=== PATIENT | male | born 1970 | race Caucasian/White ===

== ENCOUNTER 2020-02-19 04:43 | Emergency (ER) | payer SELFPAY ==
--- NOTE | ~2020-02-19 | CT_ITS ---
EXAMINATION: CT brain wo con EXAM DATE: 02/19/2020 05:51 INDICATION: Head injury. TECHNIQUE: Spiral CT of the head was performed without contrast. Axial, coronal and sagittal images were reviewed. The dose-length product (DLP) for this examination was 605.33 mGy-cm. The exposure w as tailored according to patient size, and iterative reconstruction (ASIR) was used as additional dos e reduction technique. There is no prior study for comparison. FINDINGS: There is no acute intraparenchymal hemorrhage. No evidence of intraparenchymal brain mass lesion. No evidence of acute infarction. Please note that initial head CT has limited sensitivity f or small or acute infarctions. There is mild periventricular and subcortical hypodensity, nonspecific but probably related to small vessel ischemic disease. There is mild prominence of the sulci and v entricles related to cerebral atrophy. There is intracranial carotid arteriosclerosis. There are n o extra-axial collections. There is no mass effect or midline shift. The orbits are unremarkable. Soft tissue is unremarkable. There is extensive ethmoid and left frontal sinus opacity. Mastoid air cells are well aerated. IMPRESSION: 1. No acute intracranial findings. 2. Chronic age related findings. 3. Extensive ethmoid and left frontal sinus opacity. Reviewed, dictated and finalized at location A.
[2020-02-19 04:47] VITALS: BP 145/103; PULSE 116; RESP 18; TEMP 36.6; O2SAT 100
[2020-02-19] MEDS: TETANUS,DIPHTHERIA,AC PERTUSSIS ADULT (0.5 ML) BOOSTRIX IM (05:01)
--- NOTE | 2020-02-19 05:37 | ED.WOUNDLAC ---
HPI - Wound/Laceration General Chief Complaint: Wound/Laceration Stated Complaint: head lac Time Seen by Provider: 02/19/20 04:49 Source: patient and family Limitations: no limitations History of Present Illness HPI narrative: This patient is a 49 year old male who presents for evaluation of forehead laceration s/p fall. Patient states he accidentally fell down the steps tonight. He states he slipped and he fell down 8 stairs and he struck his head. He denies LOC. He has a mild headache. He denies neck pain or any other injuries. HE has been drinking alcohol tonight. Unsure of last tetanus shot. Onset (ago): minute(s) (30) Review of Systems Review of Systems: All systems reviewed & are unremarkable except as noted in HPI and below Gastrointestinal: Gastrointestinal: Reports nausea Neurologic: Denies syncope and Reports headache(s) PMFSH Past Medical History Medical History (Updated 02/19/20 @ 06:12 by Nicole Mckeon MD) Patient denies medical problems Surgical History Surgical History (Updated 02/19/20 @ 05:38 by Nicole Mckeon MD) History of nasal surgery Social History Social History (Updated 02/19/20 @ 05:38 by Nicole Mckeon MD) Alcohol intake: current Gender identity (if verbalized by the patient): Male Exam Const: General: alert Orientation/consciousness: patient oriented x3 HENMT: Head: normocephalic and other (right forehead with irregular laceration 4 cm into subcutaneous tissue) Eyes: Pupils: Equal, round and reactive pupils present EOM: EOMs intact bilaterally Neck: Neck: normal visual inspection Chest: Chest palpation & inspection: normal inspection of the chest Resp: Effort & Inspection: normal respiratory effort and no retractions Auscultation: clear to auscultation bilaterally Cardio: Rate: regular rate Rhythm: regular rhythm Heart sounds: no murmurs Neuro: General: patient oriented x3 and moves all extremities Extrem: General: normal to inspection Course Reevaluation(s) Reevaluation #1: I discussed with patient that given mechanism, alcohol intoxication with dizziness he should have CT brain before discharge. He is agreeable Date: 02/19/20 Time: 05:41 Vital Signs Vital signs: Vital Signs Temperature 97.8 F 02/19/20 04:47 Pulse Rate 116 H 02/19/20 04:47 Respiratory Rate 18 02/19/20 04:47 Blood Pressure 145/103 H 02/19/20 04:47 Pulse Oximetry 100 02/19/20 04:47 Temperature 97.8 F 02/19/20 04:47 Pulse Rate 116 H 02/19/20 04:47 Respiratory Rate 18 02/19/20 04:47 Blood Pressure 145/103 H 02/19/20 04:47 Pulse Oximetry 100 02/19/20 04:47 Procedures Laceration Laceration 1: Date: 02/19/20 Time: 05:42 Site: face Side (If applicable): right Size (cm): 4 Description: irregular Depth: simple, single layer Local Anesthetic: lidocaine 1% and with epi Amount of anesthesia used (mL): 3 Pre-repair: irrigated ====== Skin Level ====== Skin layer closed with: other (fast absorbing gut) Size (cm): 5-0 Number of sutures: 9 Technique: simple, interrupted ====== Subcutaneous Layer ====== ====== Muscle Layer ====== ====== Tendon Layer ====== MDM - Wound/Laceration Imaging Data Radiologist's impression: CT brain without contrast- No intracranial hemorrhage or skull fracture Discharge Plan Discharge Clinical Impression: Head injury Laceration of forehead Qualifiers: Encounter type: initial encounter Qualified Code(s): S01.81XA - Laceration without foreign body of other part of head, initial encounter Patient Disposition: Home, Self-Care Condition: Stable Instructions: Antibiotic Form, Head Injury (ED), Care For Your Absorbable Stitches (ED) Additional Instructions: Today you were evaluated for a head injury and laceration. Your CT brain showed no injury. I placed absorbable stitches so you will not
== END 2020-02-19 06:27 | disposition home or self-care (01) ==
PROVIDERS: Emergency Provider General Practice
DX: S01.81XA Laceration without foreign body of other part of head, initial encounter (principal); W10.9XXA Fall (on) (from) unspecified stairs and steps, initial encounter; Z23 Encounter for immunization
CPT/HCPCS: 12013; 70450; 90471; 90715; 99284

== ENCOUNTER 2020-08-03 19:08 | Emergency (ER) | payer OTHER, SELFPAY ==
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
[2020-08-03 19:10] VITALS: BP 146/95; PULSE 92; RESP 18; TEMP 35.3; O2SAT 99
[2020-08-03] MEDS: HYDROcodone/acetaminophen (*CRX) 5-325 MG TABLET 1 TAB PO (19:56)
[2020-08-03] MEDS: diazePAM (*CRX) 5 MG TABLET PO (19:57)
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
[2020-08-03 20:43] VITALS: TEMP 36.3
== END 2020-08-03 20:38 | disposition home or self-care (01) ==
PROVIDERS: Emergency Provider Emergency Medicine
DX: S39.012A Strain of muscle, fascia and tendon of lower back, initial encounter (principal); V49.40XA Driver injured in collision with unspecified motor vehicles in traffic accident, initial encounter
CPT/HCPCS: 72100; 99283; A9270

== ENCOUNTER 2025-06-21 13:59 | Outpatient (CLI) | payer OTHER, SELFPAY ==
--- NOTE | ~2025-06-21 | XR_ITS ---
XR lumbar spine 2-3V Indication: nicotine dependence/low back pain Comparison: None Findings: The vertebral heights are intact. No fracture or subluxation. The disc heights are intact. Soft tissues unremarkable Impression: No acute abnormality. Reviewed, dictated and finalized at location P. NCE FORCE SENIOR OFFICER Impression: No acute abnormality.
--- NOTE | ~2025-06-21 | XR_ITS ---
EXAMINATION: XR chest 2V, 06/21/2025 14:20 LEGAL ASSISTANT HISTORY: nicotine dependence/low back pain COMPARISON: No comparisons available. Technique: 2 views obtained. Findings: The lungs are clear, no effusion. No pneumothorax. Heart is normal size. Mediastinal and hilar contours are within normal limits. Bony thorax no acute abnormality. Impression: No acute cardiopulmonary abnormality. Reviewed, dictated and finalized at location P. L ASSISTANT Impression: No acute cardiopulmonary abnormality.
--- OUTSIDE RECORDS SUMMARY | 2025-06-21 15:21 | XMS_ITS | Clinical Summary ---
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 Gender Identity Not on file Sexual Orientation Not on file Plan of Treatment Health Maintenance Due Date Last Done Comments Hepatitis C Virus (HCV) Screening 1969 Hepatitis B Immunization (1 of 3 - 19+ 3-dose series) 1988 Cologuard 2014 Colonoscopy 2014 Colorectal Cancer Screening 2014 Immunochemical Fecal Occult Blood 2014 Pneumococcal Immunization (5 0+ years) (1 of 1 - PCV) 12/26/2019 Zoster Immunization (1 of 2) 12/26/2019 Influenza Immunization (#1) 2025 SARS-COV-2 Immunization (3 - 2024- season) 2025 11/08/2020, 10/11/2020 Respiratory Syncytial Virus (RSV) Immunization (Adult) (1 - 1-dose 75+ series) 2044 DTaP/Tdap/Td Immunization Discontinued 02/19/2020 TdaP Immunization Completed 02/19/2020 Human Papillomavirus (HPV) Immunization Aged Out No longer eligible based on patient's age to complete this topic Meningococcal Immunization (ACWY) Aged Out No longer eligible based on patient's age to complete this topic Rotavirus Immunization Aged Out No lo nger eligible based on patient's age to complete this topic
--- OUTSIDE RECORDS SUMMARY | 2025-06-21 15:21 | XMS_ITS | Clinical Summary ---
Author Organization [facility] Address [address] [place] [id number] Care Team Providers Care Building And Grounds Supervisor Name Role Phone None, Provider MD Primary Care Provider Unavaila ble Allergies No known active allergies Medications No known medications Social History Tobacco Use Types Packs/Day Years Used Date Smoking Tobacco: Some Days Cigarettes Smokeless Tobacco: Never Tobacco Cessation:Ready to Q uit: Not Asked; Counseling Given: Not Answered Alcohol Use Standard Drinks/Week Comments Yes 70 (1 standard drink = 0.6 oz pu re alcohol) social Sex and Gender Information Value Date Recorded Sex Assigned at Not on file 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 Gender Identity Not on file Sexual Orientation Not on file Last Filed Vital Signs Vital Sign Reading Time Taken Comments Blood Pressure 137/99 07/30/2024 3:26 PM BINDERY MACHINE OPERATOR Pulse 92 07/30/2024 3:26 PM BINDERY MACHINE OPERATOR Temperature 36.9 C (98.4 F) 07/30/2024 2:08 PM BINDERY MACHINE OPERATOR Respiratory Rate 18 07/30/2024 3:26 PM BINDERY MACHINE OPERATOR Oxygen Saturation 94% 07/30/2024 3:26 PM BINDERY MACHINE OPERATOR Inhaled Oxygen Concentration - - Weight 81.6 kg (180 lb) 07/30/2024 2:08 PM BINDERY MACHINE OPERATOR Height 172.7 cm (5' 8) 07/30/2024 2:08 PM BINDERY MACHINE OPERATOR Body Mass Index 27.37 07/30/2024 2:08 PM BINDERY MACHINE OPERATOR Plan of Treatment Health Maintenance Due Date Last Done Comments Colorectal Cancer Screening Colonoscopy (10 Years) 1969 Annual Physical 1972 Hepatitis C 12/26/1987 DTaP, Tdap and Td Vaccines ( 1 - Tdap) 1988 Hepatitis B Vaccines (1 of 3 - 19+ 3-dose series) 1988 Pneumococcal Vaccine: 50+ Years (1 of 2 - PCV) 1988 Zoster Vaccines (1 of 2) 12/26/2019 COVID-19 Vaccine (2024-2 6 season) 2025 11/08/2020, 10/11/2020 Influenza Adult (#1) 2025 Hepatitis A Vaccines Aged Out No long er eligible based on patient's age to complete this topic Meningococcal B Vaccine Aged Out No l onger eligible based on patient's age to complete this topic Meningococcal Vaccine Aged Out No shala vicki eligible based on patient's age to complete this topic RSV Immunizations Under 20 Months Aged Out No longer eligible b ased on patient's age to complete this topic Insurance R Care Teams Building And Grounds Supervisor Relationship Specialty Start Date End Date None, Provider, PCP - General UNKNOWN PHYSICIAN SPECIALTY 06/15/24
--- OUTSIDE RECORDS SUMMARY | 2025-06-21 15:21 | XMS_ITS | Clinical Summary ---
Author Organization [facility] Address [address] [place] [address] Care Team Providers Care Apartment Maintenance Worker Name Role Phone None, Physician Primary Care Provider Unavailabl e Source Comments [facility],non-owned Affiliates and Associated Physician Practices is amultiple site organization consisting of ambulatory clinics and hospital sitesin [place], [place], [place] and [place]. This disclosure is being madepursuant to the Care Everywhere program and may not contain all information available regarding this patient. Last updated 18.[employer] [facility] Allergies No known active allergies Medications * Be aware that medications may not be up to date on this document. Alwaysverify current medications with the patient. oxyCODONE, immediate release, (Roxicodone) 5 MG tabletIndicati ons:Fall down stairs, initial encounter Take 1 (one) tablet by mouth every 4 hours as needed 12 tablet 06/16/2024 12:18 PM FRUIT AND VEGETABLE INSPECTOR 4 Active acetaminophen (Tylenol) 500 MG tablet Take 2 (two) tablets by mouth 3 times daily Maximum allowable Acetaminophen amount = 4 Grams (4000 mg) / 24 hours. 60 tablet 06/16/2024 12:18 PM FRUIT AND VEGETABLE INSPECTOR 4 Active lidocaine (Lidoderm) 5 % patch Apply 1 (one) patch to skin every 24 hours Apply patch to most painful area and remove after 12 hours. May reapply a new patch 12 hours later. 5 patch 06/16/2024 12:18 PM FRUIT AND VEGETABLE INSPECTOR 4 Active cyclobenzaprin e (Flexeril) 10 MG tablet Take 1 (one) tablet by mouth 3 times daily as needed for Muscle Spasms 60 tablet 06/16/2024 12:18 PM FRUIT AND VEGETABLE INSPECTOR Active Active Problems Problem Noted Date Diagnosed Date Fall down stairs, initial encounter 06/15/2024 SDH (subdural hematoma) 06/15/2024 Other closed nondisplaced fr acture of third cervical vertebra, sequela 06/15/2024 Social History Tobacco Use Types Packs/Day Years Used Date Smoking Tobacco: Some Days Cigarettes Smokeless Tobacco: Never Tobacco Cessation:Ready to Q uit: Not Asked; Counseling Given: Not Answered Alcohol Use Standard Drinks/Week Comments Yes 0 (1 standard drink = 0.6 oz pur e alcohol) sometimes PHQ-2 Answer Date Recorded Patient Health Questionnaire-2 Score 0 07/08/2024 Sex and Gender Information Value Date Recorded Sex Assigned at Not on file Legal Sex Male 3:09 PM FRUIT AND VEGETABLE INSPECTOR Gender Identity Not on file Sexual Orientation Not on file Last Filed Vital Signs Vital Sign Reading Time Taken Comments Blood Pressure 111/67 06/16/2024 4:35 AM FRUIT AND VEGETABLE INSPECTOR Pulse 105 06/16/2024 6:06 AM FRUIT AND VEGETABLE INSPECTOR Temperature 36.8 C (98.2 F) 06/16/2024 9:12 AM FRUIT AND VEGETABLE INSPECTOR Respiratory Rate 13 06/16/2024 6:06 AM FRUIT AND VEGETABLE INSPECTOR Oxygen Saturation 96% 06/16/2024 6:06 AM FRUIT AND VEGETABLE INSPECTOR Inhaled Oxygen Concentration - - Weight 81.6 kg (180 lb) 07/15/2024 1:39 PM FRUIT AND VEGETABLE INSPECTOR Height 170.2 cm (5' 7) 07/15/2024 1:39 PM FRUIT AND VEGETABLE INSPECTOR Body Mass Index 28.19 07/15/2024 1:39 PM FRUIT AND VEGETABLE INSPECTOR Plan of Treatment Health Maintenance Due Date Last Done Comments COLOGUARD (AGES 45-75) - COL ON CA SCREENING 1969 COLON MONITORING 1969 COLONOSCOPY - COLON CA SCREENING 1969 CT COLONOGRAPHY - COLON CA SCREENING 1969 Colorectal Cancer Screening 1969 FIT - COLON CA SCREENING 1969 FLEX SIG - COLON CA SCREENING 1969 LIPID TESTING 1969 HIV SCREENING 1984 HEPATITIS C SCREENING 12/21/1987 DTAP/TDAP/TD VACCINES (1 - Tdap) 1988 HEPATITIS B VACCINE (1 of 3 - 19+ 3-dose series) 1988 PNEUMOCOCCAL VACCINE 50+ (1 of 2 - PCV) 1988 ZOSTER VACCINE (1 of 2) 12/26/2019 DEPRESSION SCREENING 07/21/2024 07/15/2024 COVID-19 VACCINE (3 - 2024-2 6 season) 2025 11/08/2020, 10/11/2020 INFLUENZA VACCINE (#1) 2025 SCREENING FOR DIABETES 06/16/2027 , 06/15/2024 HIB VACCINE Aged Out No longer eligi ble based on patient's age to complete this topic HPV VACCINE Aged Out No longer eligi ble based on patient's age to complete this topic MENINGOCOCCAL (Group B) VACCINE SHARED DECISION-MAKING Aged Out No longer eligible based on patient's age to complete this topic MENINGOCOCCAL GROUPS A/C/Y/W VACCINE Aged Out No longer eligible b ased on patient's age to complete this topic Procedures Procedure Name Priority Date/Time Associated Diagnosis Comments BASIC METABOLIC PANEL (CALCIUM TOTAL) STAT 06/16/2024 2:49 AM FRUIT AND VEGETABLE INSPECTOR from Last 3 Months or Most Recently Relevant to Health Maintenance Results * (ABNORMAL) BASIC METABOLIC PANEL (CALCIUM TOTAL) (06/16/2024 2:49 AM FRUIT AND VEGETABLE INSPECTOR) BUN 10 7 - 26 mg/dL 06/16/2024 3:28 AM [facility] Creatinine 0.71 0.71 - 1.16 mg/dL 06/16/2024 3:28 AM [facility] Sodium 144 136 - 145 mmol/L 06/16/2024 3:28 AM [facility] Potassium 4.5 3.5 - 4.5 mmol/L 06/16/2024 3:28 AM [facility] Chloride 108(H) 98 - 107 mmol/L 06/16/2024 3:28 AM [facility] CO2 16(L) 22 - 29 mmol/L 06/16/2024 3:28 AM [facility] Glucose 77 70 - 99 mg/dL 06/16/2024 3:28 AM [facility] Calcium 8.7 8.4 - 10.2 mg/dL 06/16/2024 3:28 AM [facility] Anion Gap 20(H) 6 - 16 06/16/2024 3:28 AM [facility] BUN/Creatinine Ratio 14 7 - 23 06/16/2024 3:28 AM [facility] Osmolality Calculated 296(H) 275 - 295 mOsm/kg 06/16/2024 3:28 AM [facility] eGFR by CKD-EPI >90 >=90 mL/min/1.7 3 m2 06/16/2024 3:28 AM [facility] Blood BLOOD SPECIMEN / Unknown Venipuncture / Unknown 06/16/2024 2:49 AM FRUIT AND VEGETABLE INSPECTOR 06/16/2024 2:58 AM [facility] us Daniel Light MD LAB - CHEMISTRY ORDERABLES Final Result [facility] [address] [place] [address], [facility] [phone] from Last 3 Months or Most Recently Relevant to Health Maintenance Advance Directives * Full Code (Latest Code Status on File) Date Activated Date Inactivated Comments 06/15/2024 7:48 PM 06/16/2024 1:05 PM * Full Code Date Activated Date Inactivated Comments 06/15/2024 5:06 PM 06/15/2024 7:48 PM Care Teams Apartment Maintenance Worker Relationship Specialty Start Date End Date None, Physician [address] [place] [address] PCP - General 06/15/24
== END 2025-06-21 14:00 | disposition home or self-care (01) ==
PROVIDERS: PCP Internal Medicine; Visit Provider Internal Medicine
DX: M54.50 Low back pain, unspecified (principal); F17.200 Nicotine dependence, unspecified, uncomplicated
CPT/HCPCS: 71046; 72100

== ENCOUNTER 2025-07-02 15:02 | Emergency (ER) | payer OTHER, SELFPAY ==
--- NOTE | ~2025-07-02 | CT_ITS ---
EXAMINATION: CT lumbar spine wo con COMPARISON: None HISTORY: fall 3 weeks ago TECHNIQUE: Axial images were obtained through the spine without IV contrast. Coronal, sagittal reconstruction images were obtained from the axial views. CT scan performed using dose optimization techniques including the following automated exposure control; adjustment of mA and/or kV; use of iterative reconstruction technique. Automatic exposure control was used to reduce radiation dose. Permanent radiation dose record is archived to PACS. FINDINGS: The vertebral heights are intact with no acute fracture or subluxation.There is no osseous destruction identified. The disc heights are intact with no significant canal or foraminal stenosis There is significant stranding noted within the soft tissues around L3-4 incompletely evaluated. Impression: Significant inflammatory changes noted within the soft tissues anterior to L3-4. There are multiple enlarged lymph nodes in the retroperitoneum, etiology unclear. Findings may relate to a retroperitoneal process possibly neoplasm. These findings may relate to a disc related process such as discitis. Clinical correlation required. Contrast-enhanced MRI suggested if clinically there is concern for discitis and osteomyelitis. Clinically if there is concern for neoplasm CT of the abdomen and pelvis is recommended Reviewed, dictated and finalized at location P. [facility] Impression: Significant inflammatory changes noted within the soft tissues anterior to L3-4 . There are multiple enlarged lymph nodes in the retroperitoneum, etiology unc lear. Findings may relate to a retroperitoneal process possibly neoplasm. These findings may relate to a disc related process such as discitis. Clinical corre lation required. Contrast-enhanced MRI suggested if clinically there is concern for discitis and osteomyelitis. Clinically if there is concern for neoplasm CT of the abdomen and pelvis is recommended
--- NOTE | ~2025-07-02 | CT_ITS ---
[facility] EXAMINATION: CT abdomen pelvis w con COMPARISON: None HISTORY: source for enlarged retroperitoneal lymph nodes TECHNIQUE: Axial images were obtained through the abdomen, pelvis post administration of IV contrast. Oral contrast was also administered. Coronal reconstruction images were obtained from the axial views. CT scan performed using dose optimization techniques including the following automated exposure control; adjustment of mA and/or kV; use of iterative reconstruction technique. Automatic exposure control was used to reduce radiation dose. Permanent radiation dose record is archived to PACS. FINDINGS: CT abdomen: LUNG BASES: The lung bases are clear. The visualized portions of the heart and pericardium are unremarkable. LIVER: Heterogeneity noted of the liver with nodularity of the liver contours suspicious for underlying cirrhotic disease. Left lobe liver probable complex cyst 1.2 x 1.2 cm. The main portal vein is patent. There is no intrahepatic biliary duct dilatation. SPLEEN: Unremarkable. KIDNEYS: Right Kidney: Unremarkable. No calculi. No hydronephrosis. Left Kidney: The left kidney subcentimeter probable renal cysts. ADRENAL GLANDS: Unremarkable. PANCREAS: Unremarkable. GALLBLADDER/BILIARY: Mild distention of the gallbladder with cholelithiasis. STOMACH AND ESOPHAGUS: Stomach is decompressed. BOWEL/MESENTERY: Mild diverticulosis, no colitis or diverticulitis. Appendix normal. Minimal stranding within the mesentery. There are no thickened or dilated loops of small bowel. ADENOPATHY/RETROPERITONEUM: There are moderately enlarged lymph nodes in the peripancreatic space the largest 1.2 x 1.3 cm. There are enlarged lymph nodes within the retroperitoneum the largest 2.2 x 2 cm. There are some enlarged lymph nodes in the mesentery the largest 1.2 x 1.1 cm. AORTA/VASCULATURE: Normal caliber aorta. FREE FLUID OR FREE AIR: None. CT pelvis: SOLID ORGANS/REPRODUCTIVE: Unremarkable. BLADDER: Within normal limits. OSSEOUS STRUCTURES: No acute osseous abnormality.No suspicious lesions. OVERLYING SOFT TISSUES: Unremarkable. IMPRESSION: 1. Lymphadenopathy detailed above. Findings are concerning for neoplasm. PET CT is recommended. 2. Probable cirrhotic disease of the liver. 3. Incidental findings detailed above Reviewed, dictated and finalized at location P. [employer]
[2025-07-02 15:04] VITALS: BP 128/77; PULSE 108; RESP 20; TEMP 36.6; O2SAT 100
[2025-07-02] MEDS: CYCLOBENZAPRINE HCL 10 MG TABLET PO (16:38)
[2025-07-02] MEDS: ACETAMINOPHEN 500 MG TABLET 1000 MG PO (16:38)
[2025-07-02 17:27] VITALS: BP 100/63; PULSE 87; RESP 15; O2SAT 100
[2025-07-02 18:43] LABS: Hematocrit 42.8 % (42.0-52.0); Hemoglobin 14.6 g/dL (14.0-18.0); Immature Granulocyte Percent A 0.6 % (0-0.5); Lymphocytes Absolute Auto 3.86 K/mm3 (0.9-3.2); Mean Corpuscular HGB Conc 34.1 g/dl (32-36); Mean Corpuscular Hemoglobin 32.4 pg (26-34); Mean Corpuscular Volume 95.1 fl (80-100); Nucleated Red Blood Cells Absolute Auto 0.000 K/mm3 (0.0-0.012); Nucleated Red Blood Cells Perc 0.0 % (0.0-0.2); Platelet Count Result 174 k/mm3 (150-375); Red Blood Count 4.50 M/mm3 (4.6-6.20); White Blood Count 13.6 K/mm3 (4.5-10.0)
--- NOTE | 2025-07-02 18:45 | PC.NURSE ---
Pt unable to provide urine sample at this time, declines straight cath.
[2025-07-02 19:03] LABS: Alanine Aminotransferase 38 U/L (6-50); Albumin Level 3.1 g/dL (3.5-5.1); Alkaline Phosphatase 180 U/L (38-126); Anion Gap 6 mmol/L (4-12); Aspartate Amino Transferase 113 U/L (17-59); Bilirubin,Total 1.5 mg/dL (0.2-1.3); Blood Urea Nitrogen 10 mg/dL (9-20); CRP 6.1 mg/dL (<1.0); Calcium 8.9 mg/dL (8.4-10.2); Carbon Dioxide 22 mmol/L (22-30); Chloride 107 mmol/L (98-107); Estimated CRCL calculation 103 ml/min; Estimated Glomerular Filt Rate > 60; Glucose 85 mg/dL (65-110); Potassium 3.7 mmol/L (3.4-5.0); Sodium 135 mmol/L (137-145); Total Protein 8.4 g/dL (6.3-8.2)
--- NOTE | 2025-07-02 19:54 | ED_ITS ---
HPI - Back Pain/Injury General Chief Complaint: Back Pain/Injury Stated Complaint: lower back pain s/p slip and fall Time Seen by Provider: 07/02/25 15:15 History of Present Illness HPI Narrative: 54-year-old male presenting with persistent lower back pain after falling down the stairs 3 weeks ago. Patient states he slipped and fell down 7 or 8 steps. Denies hitting his head, loss of consciousness, nausea/vomiting, dizziness, or any other vision changes. Along with the back pain he he reports having a hard time performing day-to-day tasks which and intermittent back spasms. Denies numbness/tingling, saddle anesthesia, urinary/bowel retention/incontinence. He states he took naproxen today which did not improve his pain. Related Data Home Medications ?Medication ?Instructions ?Recorded ?Confirmed ?Last Taken ?Type acetaminophen 500 mg tablet 500 mg PO Q6H PRN 06/24/24 06/24/24 Unknown History oxycodone 5 mg tablet mg PO 06/24/24 06/24/24 Unkn own History Allergies Allergy/AdvReac Type Severity Reaction Status Date / Time No Known Allergies Allergy Verified 07/02/25 15:03 Review of Systems 2 Review of Systems: All systems reviewed & are unremarkable except as noted in HPI and below PMFSH Surgical History Surgical History History of nasal surgery Family History Family History Mother History of cancer of lymphatic system in adulthood Social History Social History (Updated 06/24/24 @ 14:13 by Tessie Villalobos APRN) Smoking status: Former smoker Tobacco type: cigarettes Alcohol intake: current Drinks per week: 18 Alcohol use details: 6 drinks 3x per week Substance use: former Substance use type: IV drugs Last use: around 2016 Lack of Transportation: No Lack of Food: Never True Current Housing: I Have Housing Concerned About Future Housing: No Difficulty Paying Gas/Electric Bills: YES Difficulty Paying for Meds: YES Currently Unemployed: No Education: High School Diploma/GED Difficulty w/ Childcare or Family Care: No Living arrangements: with family Occupation/Education: occupation Additional occupation/education comments: [employer] Gender identity (if verbalized by the patient): Male Exam 2 Narrative: GENERAL: No acute distress. Appears older than stated age. HEAD: Normocephalic, atraumatic. EYES: PERRLA and EOMI. ENT: Nares clear, no rhinorrhea or epistaxis. Mucous membranes moist. Oropharynx without tonsillar hypertrophy exudate or other lesions. Bilateral TMs pearly chaves non-bulging NECK: Supple. No adenopathy or masses. No carotid bruits or JVD CHEST: Clear to auscultation. No respiratory distress. No wheezes rales or rhonchi HEART: Regular rate and rhythm. No murmur heard. Normal peripheral pulses. ABDOMEN: Soft, nontender, nondistended, normal active bowel sounds. BACK: Diffuse lower back TTP. EXTREMITIES: Normal range of motion. No edema. SKIN: Warm, dry, no rash. NEURO: No focal deficits. Alert and oriented x3. PSYCH: Normal mood and affect Course Vital Signs Vital signs: Vital Signs Temperature 97.8 F 07/02/25 15:04 Pulse Rate 108 H 07/02/25 15:04 Respiratory Rate 20 07/02/25 15:04 Blood Pressure 128/77 07/02/25 15:04 Pulse Oximetry 100 07/02/25 15:04 Oxygen Delivery Room Air 07/02/25 15:04 Temperature 97.8 F 07/02/25 15:04 Pulse Rate 87 07/02/25 17:27 Respiratory Rate 15 07/02/25 17:27 Blood Pressure 100/63 07/02/25 17:27 Pulse Oximetry 100 07/02/25 17:27 Oxygen Delivery Room Air 07/02/25 15:04 [facility] Narrative Medical decision making narrative: 54-year-old male presenting with persistent lower back pain after falling down the stairs 3 weeks ago. Patient states he slipped and fell down 7 or 8 steps. Denies hitting his head, loss of consciousness, nausea/vomiting, dizziness, or any other vision changes. Along with the back pain he he reports having a hard time performing day-to-day tasks which and intermittent back spasms. Denies numbness/tingling, saddle anesthesia, urinary/bowel retention/incontinence. He states he took naproxen today which did not improve his pain. Upon my initial assessment patient appears nontoxic with stable vitals. Patient's back pain is more paraspinal. Administered Tylenol and Flexeril which improved the patient's pain. Lumbar spine imaging demonstrates significant inflammatory changes noted within the soft tissues anterior to L3-4 and multiple enlarged lymph nodes in the retroperitoneum with an unknown etiology. Reading states that these findings may relate to a retroperitoneal process possibly neoplasm or to a disc related process such as discitis. Advises clinical correlation and recommends contrast-enhanced MRI if clinically there is concern for discitis and osteomyelitis. Clinically if there is concern for neoplasm CT of the abdomen and pelvis is recommended. Obtained labs which demonstrated leukocytosis of 13.6, elevations in all LFTs except for ALT, CRP of 6.1, and a lactic of 2.3. CT abdomen pelvis demonstrates lymphadenopathy with findings concerning for neoplasm. PET CT is recommended. And probable cirrhotic disease of the liver. Other incidental findings noted and discussed with the patient. Patient is currently hemodynamically stable and has no acute distress. Given stability, no emergent intervention is indicated. Risks and benefits of further workup discussed and patient instructed to follow- up with primary care for additional evaluation and workup. Patient verbalized understanding and questions were addressed. Patient agrees with discussion and after shared medical decision making agrees with plan of care. All questions were answered to the patient's satisfaction. The patient is appropriate for outpatient treatment and follow-up. Given reasons to return. Differential Diagnosis Differential Diagnosis: Differential diagnostic considerations for back pain include herniated disc, sciatica, abscess, strain/sprain, discitis, myelitis, fracture, hematoma, cauda equina, osteomyelitis, metastatic and/or primary malignancy, renal colic, pyelonephritis, AAA. Lab Data MDM Lab Attestation statement: I personally reviewed the patient's lab results. 07/02/25 18:36 07/02/25 18:36 Labs: Lab Results 07/02/25 07/02/25 07/02/25 Range/Units 18:36 18:36 19:58 WBC 13.6 H (4.5-10.0) K/mm3 RBC 4.50 L (4.6-6.20) M/mm3 Hgb 14.6 (14.0-18.0) g/dL Hct 42.8 (42.0-52.0) % MCV 95.1 (80-100) fl MCH 32.4 (26-34) pg MCHC 34.1 (32-36) g/dl RDW 14.0 (11.5-14.5) % Plt Count 174 (150-375) k/mm3 MPV 8.7 (7.4-10.4) fl Immature Gran % (Auto) 0.6 H (0-0.5) % Neut % (Auto) 62.9 (45.5-73.1) % Lymph % (Auto) 28.4 (18.3-44.2) % Brantley % (Auto) 6.8 (2.6-8.5) % Eos % (Auto) 0.9 (0-4.4) % Baso % (Auto) 0.4 (0.2-1.2) % Lymph # (Auto) 3.86 H (0.9-3.2) K/mm3 Brantley # (Auto) 0.9 H (0.1-0.6) K/mm3 Eos # (Auto) 0.1 (0-0.3) K/mm3 Baso # (Auto) 0.1 (0.0-0.1) K/mm3 Abs Immat Gran (auto) 0.08 H (0.00-0.031) K/mm3 Absolute Neuts (auto) 8.5 H (1.3-6.7) K/mm3 Absolute Nucleated RBC 0.000 (0.0-0.012) K/mm3 Nucleated RBC % 0.0 (0.0-0.2) % Sodium 135 L (137-145) mmol/L Potassium 3.7 (3.4-5.0) mmol/L Chloride 107 (98-107) mmol/L Carbon Dioxide 22 (22-30) mmol/L Anion Gap 6 (4-12) mmol/L BUN 10 (9-20) mg/dL Creatinine 0.65 L (0.7-1.3) mg/dL Estim Creat Clear Calc 103 ml/min Estimated GFR > 60 (59 - ) Glucose 85 (65-110) mg/dL Lactic Acid 2.3 H (0.7-2.0) mmol/L Calcium 8.9 (8.4-10.2) mg/dL Total Bilirubin 1.5 H (0.2-1.3) mg/dL AST 113 H (17-59) U/L ALT 38 (6-50) U/L Alkaline Phosphatase 180 H (38-126) U/L C-Reactive Protein Cancelled 6.1 H Total Protein 8.4 H (6.3-8.2) g/dL Albumin 3.1 L (3.5-5.1) g/dL Urine Color Dark yellow (Yellow) Urine Appearance Clear (Clear) Urine pH 5.5 (5.0-9.0) Ur Specific Virgin 1.040 H (1.001-1.035) Urine Protein Trace (Negative) mg/dL Urine Glucose (UA) Negative (Negative) mg/dL Urine Ketones Negative (Negative) mg/dL Ur Blood (Man) Trace (Negative) Urine Nitrate Negative (Negative) Urine Bilirubin 1+ H (Negative) Urine Urobilinogen 1.0 (<2.0) mg/dL Leukocyte Esterase Rfl Trace H (Negative) GABRIEL/UL Urine RBC 3-5 H (0-2) /hpf Urine WBC 0-5 (0-3) /hpf Ur Squamous Epith Cells None seen (Few) /hpf Urine Bacteria None seen /hpf Urine Casts 3-5 Imaging Data Attestation: I personally reviewed and interpreted this imaging study as follows: Radiologist's impression: ITS Impressions Lumbar Spine CT 07/02/25 17:37 Impression: Significant inflammatory changes noted within the soft tissues anterior to L3-4. There are multiple enlarged lymph nodes in the retroperitoneum, etiology unclear. Findings may relate to a retroperitoneal process possibly neoplasm. These findings may relate to a disc related process such as discitis. Clinical correlation required. Contrast-enhanced MRI suggested if clinically there is concern for discitis and osteomyelitis. Clinically if there is concern for neoplasm CT of the abdomen and pelvis is recommended Abdomen/Pelvis CT 07/02/25 19:49 IMPRESSION: 1. Lymphadenopathy detailed above. Findings are concerning for neoplasm. PET CT is recommended. 2. Probable cirrhotic disease of the liver. 3. Incidental findings detailed above Discharge Plan Discharge Clinical Impression: Back pain, Back muscle spasm Patient Disposition: Home Condition: Stable Instructions: Back Pain (ED) Additional Instructions: Return to the ER if you experience weakness, numbness, bowel/bladder incontinence or any other symptoms that are concerning to you. Rest, use ice/heat, take anti-inflammatories (Aleve, Ibuprofen, Naproxen, etc) or Tylenol as needed for pain as well as muscle relaxer as needed for pain. Follow up with your primary care doctor as soon as possible for further workup and imaging as discussed. If you need to access the records from this visit, call [facility] Medical Records. Patient Language: French Prescriptions: New cyclobenzaprine 10 mg tablet 10 mg PO TID PRN (Reason: muscle spasm) Qty: 20 0RF No Action oxycodone 5 mg tablet PO acetaminophen 500 mg tablet 500 mg PO Q6H PRN cyclobenzaprine 10 mg tablet 10 mg PO TID PRN (Reason: muscle spasm) Qty: 7 0RF lidocaine 5 % adhesive patch,medicated 1 patch topical DAILY Qty: 1 0RF Rx Instructions: leave on most painful area for up to 12 hrs, dispense one box Follow-up/Referrals: Marylou,Leobardo Melissa MD [Primary Care Provider] Stand Alone Forms: Work/School Release IP
[2025-07-02 20:06] LABS: Add Urine Microscopic? YES; Appearance Urine Clear (Clear); Glucose Urine UA Negative (Negative); Leukocyte Esterase Ur Trace LEU/UL (Negative); Nitrate Urine Negative (Negative); Specific Grav Ur 1.040 (1.001-1.035)
== END 2025-07-02 20:59 | disposition home or self-care (01) ==
PROVIDERS: PCP Internal Medicine
DX: M54.50 Low back pain, unspecified (principal); M62.830 Muscle spasm of back; Z87.891 Personal history of nicotine dependence; W10.9XXA Fall (on) (from) unspecified stairs and steps, initial encounter
CPT/HCPCS: 36415; 72131; 74177; 80053; 81001; 83605; 85025; 86140; 99284; A9270; Q9967

== ENCOUNTER 2025-07-06 13:35 | Inpatient (IN) | payer OTHER, SELFPAY ==
[2025-07-06] VITALS (22 sets, daily range): BP systolic 78–114; BP diastolic 48–75; PULSE 70–109; RESP 14–24; TEMP 36.3–36.6; O2SAT 94–100; BMI 25.7
--- NOTE | ~2025-07-06 | US_ITS ---
US abdomen limited Indication: elevated liver enzymes Comparison: None Technique: Styles-scale and color Doppler images were obtained. Findings: LIVER: The liver contours are nodular. Moderate increased echogenicity of the liver. Right lobe liver complex cystic lesion 1.3 x 1.3 cm. . GALLBLADDER/BILIARY: Cholelithiasis. No pericholecystic fluid or wall thickening. CBD 6.2 mm. Quincy sign negative. PANCREAS: Pancreas limited by bowel gas. Right Kidney: Right kidney was not imaged Impression: 1. Cirrhotic disease of the liver. Complex probable liver cyst. Contrast- enhanced MRI suggested. 2. Cholelithiasis. Reviewed, dictated and finalized at location [facility] Impression: 1. Cirrhotic disease of the liver. Complex probable liver cyst. Contrast-enhanc ed MRI suggested. 2. Cholelithiasis.
--- NOTE | ~2025-07-06 | MR_ITS ---
EXAM/PROCEDURE: MR lumbar spine wo/w con HISTORY: Infectious process COMPARISON: None available. TECHNIQUE: Lumbar spine MRI with and without contrast FINDINGS: In the epidural space anteriorly, at the L4-5 level, a 1.4 x 1.4 x 0.3 cm peripherally enhancing fluid accumulation is seen on axial image 24 postcontrast series 8, and sagittal image 8 series 7 on the postcontrast series, and sagittal image 8 series 3, the T2 fat saturation sequence. There may also be slight extension caudally and cephalad of soft tissue inflammatory/infectious changes measuring up to 3.5 cm as seen on image 8 series 3 with abnormal enhancement above and below the disc space, however the fluid accumulation itself is much smaller. Epidural changes at L4-5 resulting in mild spinal canal stenosis. Moderately severe bilateral neural foraminal narrowing which appears to be primarily associated with degenerative disc and facet changes. Borderline widening of the L4-5 disc space, however no internal fluid accumulation within the disc or abnormal enhancement. Slight erosive appearing changes developing along the anterior superior endplate of L5 as seen on images 3 through 8 of series 7. There is moderately extensive T2 weighted hyperintense and enhancing paraspinal soft tissue changes anterior to the L4-5 space as seen on images 23 through 26 of series 8. No other acute or aggressive bony or soft tissue process seen. Degenerative changes throughout the lumbar spine. The conus tapers normally at the level of L1. Other level specific degenerative changes as follows: T12-L1: Mild degenerative change L1-2: Mild degenerative change L2-3: Mild degenerative change L3-4: Moderate facet hypertrophy with thickening of ligamentum flavum and mild posterior spondylosis results in borderline stenosis in the lateral recesses and mild to moderate bilateral neural foraminal narrowing. No spinal canal stenosis or discrete disc protrusion. L4-5: As above. L5-S1: Mild to moderate degenerative disc and facet changes but no spinal canal stenosis or discrete disc protrusion. Mild to moderate bilateral neural foraminal narrowing. IMPRESSION: 1. Suspect small epidural abscess at the level L4-5 with moderately moderately extensive anterior paraspinal inflammatory/infectious soft tissue changes which may represent phlegmon but no other abscess or fluid collection identified. The disc itself at L4-5 does not appear significantly inflamed/abnormal in signal or enhancement, however there are erosive appearing changes along the left lateral margin of the superior endplate of L5 which is concerning for developing osteomyelitis of L5. 2. Other level specific degenerative changes as above. Reviewed, dictated and finalized at location A. [employer]CH[employer]ICIAN IMPRESSION: 1. Suspect small epidural abscess at the level L4-5 with moderately moderately extensive anterior paraspinal inflammatory/infectious soft tissue changes which may represent phlegmon but no other abscess or fluid collection identified. Th e disc itself at L4-5 does not appear significantly inflamed/abnormal in signal or enhancement, however there are erosive appearing changes along the left lat eral margin of the superior endplate of L5 which is concerning for developing o steomyelitis of L5. 2. Other level specific degenerative changes as above.
--- NOTE | 2025-07-06 14:26 | ED_ITS ---
HPI - Skin/Abscess/Foreign Bdy General Chief complaint: Skin/Abscess/Foreign Body <Corina Saleh APRN - Last Filed: 07/06/25 14:28> Stated complaint: RASH AFTER CT SCAN <Corina Saleh APRN - Last Filed: 07/06/25 14:28> Time Seen by Provider: 07/06/25 14:26 <Corina Saleh APRN - Last Filed: 07/06/25 14:28> Focused HPI: Patient is a 54-year-old male who presents to the ER with a rash to his bilateral upper extremities and the tops of his feet. He reports he was seen in this ER this past weekend for back pain. Patient reports he had a CT scan and he is wondering if the contrast caused these symptoms. He denies pain to the site but endorses itching. Patient denies any recent illness. He endorses a history of a brain bleed, cervical strain, and rib fractures following a fall down a flight of stairs. Patient endorses ongoing back pain since he was evaluated in the ER this past weekend. GENERAL: Well-appearing, well-nourished, and in no acute distress. HEAD: Normocephalic, atraumatic. CHEST: Clear to auscultation. ?No respiratory distress. HEART: Regular rate and rhythm.? NEURO: ?Alert and oriented x3. Patient screened in triage and initial orders placed.? ?Additional care and disposition to be based upon?diagnostic testing and treatment. <Corina Saleh APRN - Last Filed: 07/06/25 14:28> History of Present Illness HPI narrative: Agree with HPI. <Juventino Drew DO - Last Filed: 07/06/25 21:58> Related Data Allergies/Adverse reactions: Allergies Allergy/AdvReac Type Severity Reaction Status Date / Time No Known Allergies Allergy Verified 07/06/25 20:41 <Corina Saleh APRN - Last Filed: 07/06/25 14:28> Review of Systems 2 Review of Systems: All systems reviewed & are unremarkable except as noted in HPI and below <Juventino Drew DO - Last Filed: 07/06/25 21:58> PMFSH Past Medical History Medical History: Medical History Vitamin D deficiency Muscle spasm Fracture of cervical vertebra without spinal cord injury Brain bleed <Corina Saleh APRN - Last Filed: 07/06/25 14:28> Surgical History Surgical History: Surgical History History of tonsillectomy and adenoidectomy History of nasal surgery nasal polypectomy <Corina Saleh BUILDING INSPECTION ENGINEER - Last Filed: 07/06/25 14:28> Family History Family History: Family History Mother History of cancer of lymphatic system in adulthood Sibling Malignant neoplasm of prostate <Corina Saleh APRN - Last Filed: 07/06/25 14:28> Social History Social History: Social History Social History: He is single and lives with mother . He has no children . 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 . 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 He is a starr IV drug user. He continues to drink 6 drinks 3 times a week. Code status full code Smoking status: Former smoker Tobacco type: cigarettes Alcohol intake: current Drinks per week: 18 Alcohol use details: 6 drinks 3x per week Substance use: former Substance use type: IV drugs Last use: around 2017 Lack of Transportation: No Lack of Food: Never True Current Housing: I Have Housing Concerned About Future Housing: No Difficulty Paying Gas/Electric Bills: YES Difficulty Paying for Meds: YES Currently Unemployed: No Education: High School Diploma/GED Difficulty w/ Childcare or Family Care: No Living arrangements: with family Occupation/Education: occupation 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[employer] Gender identity (if verbalized by the patient): Male <Corina Saleh APRN - Last Filed: 07/06/25 14:28> Exam 2 Narrative: APPEARANCE: No acute distress, nontoxic, resting in bed EYES: EOMI HEENT: Normocephalic, atraumatic, thrush noted there is non scrapable RESPIRATORY: No respiratory distress Clear to auscultation bilaterally with no rhonchi wheezing or rales. CARDIOVASCULAR: Regular rate and rhythm without murmurs rubs or gallops. ABDOMINAL: Soft, nontender, nondistended, no rebound or guarding MUSCULOSKELETAl: Moves all extremities. No clubbing, cyanosis or edema. NEURO: Awake and alert. Following commands, speech normal, no focal deficits SKIN:: Pustular lesions to the extensor surfaces of the bilateral upper extremities with petechiae up to the shoulders and to the bilateral lower extremities PSYCHIATRIC: Normal affect/mood, <Juventino Drew DO - Last Filed: 07/06/25 21:58> Course Vital Signs Vital signs: Vital Signs Temperature 97.8 F 07/06/25 13:37 Pulse Rate 70 07/06/25 13:37 Respiratory Rate 16 07/06/25 13:37 Blood Pressure 87/60 L 07/06/25 13:37 Pulse Oximetry 100 07/06/25 13:37 Oxygen Delivery Room Air 07/06/25 13:37 Temperature 97.4 F L 07/06/25 20:46 Pulse Rate 91 07/06/25 20:46 Respiratory Rate 20 07/06/25 20:46 Blood Pressure 103/63 07/06/25 20:46 Pulse Oximetry 95 07/06/25 20:46 Oxygen Delivery Room Air 07/06/25 13:37 <Corina Saleh, BUILDING INSPECTION ENGINEER - Last Filed: 07/06/25 14:28> Vital Signs Temperature 97.8 F 07/06/25 13:37 Pulse Rate 70 07/06/25 13:37 Respiratory Rate 16 07/06/25 13:37 Blood Pressure 87/60 L 07/06/25 13:37 Pulse Oximetry 100 07/06/25 13:37 Oxygen Delivery Room Air 07/06/25 13:37 Temperature 97.4 F L 07/06/25 20:46 Pulse Rate 91 07/06/25 20:46 Respiratory Rate 20 07/06/25 20:46 Blood Pressure 103/63 07/06/25 20:46 Pulse Oximetry 95 07/06/25 20:46 Oxygen Delivery Room Air 07/06/25 13:37 <Juventino Drew DO - Last Filed: 07/06/25 21:58> MDM MDM Narrative Medical decision making narrative: 54-year-old male Presenting for rash to his bilateral arms. On initial evaluation patient was in no acute distress afebrile. Initial blood pressures in the 80s/60s. Differentials include but are not limited to: Allergic reaction, cellulitis, tick-borne illness, HIV, cancer Notable exam findings: Scattered lesions as above. Heart and lungs clear. I personally reviewed the patient's lab result. Notable lab findings: Leukocytosis at 13.3. Lactic acidosis at 3.0. T bili elevated at 3. CRP elevated at 6.9. UA consistent with a UTI. I personally reviewed the patient's EKGs: Normal sinus rhythm, normal axis, normal intervals, no acute ST or T-wave changes CTs from last visit showed possible new neoplasm. Unclear was the source of his rash this time, this will require further evaluation. Obtained HIV testing. He does have sepsis due to a UTI at this time. He was given vanc and Rocephin to cover for this and any other possible dermatologic infections. Case was discussed with hospitalist who will admit the patient, does recommend adding on hepatitis screening as well. <Juventino Drew DO - Last Filed: 07/06/25 21:58> Differential Diagnosis Differential Diagnosis: Allergic reaction, cellulitis, tick-borne illness, HIV, cancer <Juventino Derw DO - Last Filed: 07/06/25 21:58> Lab Data Result diagrams: 07/06/25 15:03 07/06/25 15:03 <Corina Saleh APRN - Last Filed: 07/06/25 14:28> Labs: Lab Results 07/06/25 07/06/25 07/06/25 Range/Units 15:03 16:13 17:17 WBC 13.3 H (4.5-10.0) K/mm3 RBC 4.81 (4.6-6.20) M/mm3 Hgb 15.5 (14.0-18.0) g/dL Hct 46.0 (42.0-52.0) % MCV 95.6 (80-100) fl MCH 32.2 (26-34) pg MCHC 33.7 (32-36) g/dl RDW 14.3 (11.5-14.5) % Plt Count 189 (150-375) k/mm3 MPV 8.8 (7.4-10.4) fl Immature Gran % (Auto) 0.5 (0-0.5) % Neut % (Auto) 77.1 H (45.5-73.1) % Lymph % (Auto) 17.7 L (18.3-44.2) % Cross % (Auto) 3.7 (2.6-8.5) % Eos % (Auto) 0.6 (0-4.4) % Baso % (Auto) 0.4 (0.2-1.2) % Lymph # (Auto) 2.35 (0.9-3.2) K/mm3 Cross # (Auto) 0.5 (0.1-0.6) K/mm3 Eos # (Auto) 0.1 (0-0.3) K/mm3 Baso # (Auto) 0.1 (0.0-0.1) K/mm3 Abs Immat Gran (auto) 0.06 H (0.00-0.031) K/mm3 Absolute Neuts (auto) 10.3 H (1.3-6.7) K/mm3 Absolute Nucleated RBC 0.000 (0.0-0.012) K/mm3 Nucleated RBC % 0.0 (0.0-0.2) % PT 16.6 H (11.1-14.7) Seconds INR 1.3 APTT 34.6 (22.3-36.8) Seconds Sodium 135 L (137-145) mmol/L Potassium 3.8 (3.4-5.0) mmol/L Chloride 105 (98-107) mmol/L Carbon Dioxide 20 L (22-30) mmol/L Anion Gap 10 (4-12) mmol/L BUN 11 (9-20) mg/dL Creatinine 0.85 (0.7-1.3) mg/dL Estim Creat Clear Calc 91 ml/min Estimated GFR > 60 (59 - ) Glucose 93 (65-110) mg/dL Lactic Acid 3.0 H 2.4 H (0.7-2.0) mmol/L Calcium 9.0 (8.4-10.2) mg/dL Total Bilirubin 3.0 H (0.2-1.3) mg/dL AST 86 H (17-59) U/L ALT 33 (6-50) U/L Alkaline Phosphatase 182 H (38-126) U/L Total Creatine Kinase 22 L (55-170) U/L C-Reactive Protein 6.9 H (<1.0) mg/dL Total Protein 8.9 H (6.3-8.2) g/dL Albumin 3.2 L (3.5-5.1) g/dL Urine Color Dark amanda (Yellow) Urine Appearance Cloudy H (Clear) Urine pH 5.5 (5.0-9.0) Ur Specific [place] 1.020 (1.001-1.035) Urine Protein 1+ H (Negative) mg/dL Urine Glucose (UA) Negative (Negative) mg/dL Urine Ketones Negative (Negative) mg/dL Ur Blood (Man) 3+ H (Negative) Urine Nitrate Positive H (Negative) Urine Bilirubin 1+ H (Negative) Urine Urobilinogen 1.0 (<2.0) mg/dL Add Ur Microanalysis Reviewed Leukocyte Esterase Rfl 2+ H (Negative) GABRIEL/UL Urine RBC 51-100 H (0-2) /hpf Urine WBC 6-10 H (0-3) /hpf Ur Squamous Epith Cells None seen (Few) /hpf Urine Bacteria None seen /hpf Urine Casts 3-5 Urine Mucus Present /lpf HIV-1 RNA Qualitative Pending HIV-2 RNA Qualitative Pending <Corina Saleh, BUILDING INSPECTION ENGINEER - Last Filed: 07/06/25 14:28> Lab Results 07/06/25 07/06/25 07/06/25 Range/Units 15:03 16:13 17:17 WBC 13.3 H (4.5-10.0) K/mm3 RBC 4.81 (4.6-6.20) M/mm3 Hgb 15.5 (14.0-18.0) g/dL Hct 46.0 (42.0-52.0) % MCV 95.6 (80-100) fl MCH 32.2 (26-34) pg MCHC 33.7 (32-36) g/dl RDW 14.3 (11.5-14.5) % Plt Count 189 (150-375) k/mm3 MPV 8.8 (7.4-10.4) fl Immature Gran % (Auto) 0.5 (0-0.5) % Neut % (Auto) 77.1 H (45.5-73.1) % Lymph % (Auto) 17.7 L (18.3-44.2) % Cross % (Auto) 3.7 (2.6-8.5) % Eos % (Auto) 0.6 (0-4.4) % Baso % (Auto) 0.4 (0.2-1.2) % Lymph # (Auto) 2.35 (0.9-3.2) K/mm3 Cross # (Auto) 0.5 (0.1-0.6) K/mm3 Eos # (Auto) 0.1 (0-0.3) K/mm3 Baso # (Auto) 0.1 (0.0-0.1) K/mm3 Abs Immat Gran (auto) 0.06 H (0.00-0.031) K/mm3 Absolute Neuts (auto) 10.3 H (1.3-6.7) K/mm3 Absolute Nucleated RBC 0.000 (0.0-0.012) K/mm3 Nucleated RBC % 0.0 (0.0-0.2) % PT 16.6 H (11.1-14.7) Seconds INR 1.3 APTT 34.6 (22.3-36.8) Seconds Sodium 135 L (137-145) mmol/L Potassium 3.8 (3.4-5.0) mmol/L Chloride 105 (98-107) mmol/L Carbon Dioxide 20 L (22-30) mmol/L Anion Gap 10 (4-12) mmol/L BUN 11 (9-20) mg/dL Creatinine 0.85 (0.7-1.3) mg/dL Estim Creat Clear Calc 91 ml/min Estimated GFR > 60 (59 - ) Glucose 93 (65-110) mg/dL Lactic Acid 3.0 H 2.4 H (0.7-2.0) mmol/L Calcium 9.0 (8.4-10.2) mg/dL Total Bilirubin 3.0 H (0.2-1.3) mg/dL AST 86 H (17-59) U/L ALT 33 (6-50) U/L Alkaline Phosphatase 182 H (38-126) U/L Total Creatine Kinase 22 L (55-170) U/L C-Reactive Protein 6.9 H (<1.0) mg/dL Total Protein 8.9 H (6.3-8.2) g/dL Albumin 3.2 L (3.5-5.1) g/dL Urine Color Dark amanda (Yellow) Urine Appearance Cloudy H (Clear) Urine pH 5.5 (5.0-9.0) Ur Specific [place] 1.020 (1.001-1.035) Urine Protein 1+ H (Negative) mg/dL Urine Glucose (UA) Negative (Negative) mg/dL Urine Ketones Negative (Negative) mg/dL Ur Blood (Man) 3+ H (Negative) Urine Nitrate Positive H (Negative) Urine Bilirubin 1+ H (Negative) Urine Urobilinogen 1.0 (<2.0) mg/dL Add Ur Microanalysis Reviewed Leukocyte Esterase Rfl 2+ H (Negative) GABRIEL/UL Urine RBC 51-100 H (0-2) /hpf Urine WBC 6-10 H (0-3) /hpf Ur Squamous Epith Cells None seen (Few) /hpf Urine Bacteria None seen /hpf Urine Casts 3-5 Urine Mucus Present /lpf HIV-1 RNA Qualitative Pending HIV-2 RNA Qualitative Pending <Juventino Drew DO - Last Filed: 07/06/25 21:58> Discharge Plan Discharge Clinical Impression: Acute UTI, Sepsis, Pustular rash, Petechiae <Corina Saleh APRN - Last Filed: 07/06/25 14:28> Patient Disposition: Still a Patient <Corina Saleh APRN - Last Filed: 07/06/25 14:28> Condition: Stable <Corina Saleh APRN - Last Filed: 07/06/25 14:28>
--- NOTE | 2025-07-06 14:46 | ECG_ITS ---
Test Date: 2025-07-06 14:47:56 Measurements Intervals [place] Rate: 93 P: 46 [place]: 116 QRS: 69 QRSD: 91 T: 12 QT: 373 QTc: 464 Interpretive Statements SINUS RHYTHM NORMAL ECG No previous ECG available for comparison Electronically Signed On 07-06-2025 15:14:44 DENTAL PROFESSIONAL by Mark Messer D.O.
[2025-07-06 15:11] LABS: Hematocrit 46.0 % (42.0-52.0); Hemoglobin 15.5 g/dL (14.0-18.0); Immature Granulocyte Percent A 0.5 % (0-0.5); Lymphocytes Absolute Auto 2.35 K/mm3 (0.9-3.2); Mean Corpuscular HGB Conc 33.7 g/dl (32-36); Mean Corpuscular Hemoglobin 32.2 pg (26-34); Mean Corpuscular Volume 95.6 fl (80-100); Nucleated Red Blood Cells Absolute Auto 0.000 K/mm3 (0.0-0.012); Nucleated Red Blood Cells Perc 0.0 % (0.0-0.2); Platelet Count Result 189 k/mm3 (150-375); Red Blood Count 4.81 M/mm3 (4.6-6.20); White Blood Count 13.3 K/mm3 (4.5-10.0)
[2025-07-06 15:24] LABS: INR 1.3; Prothrombin Time 16.6 Seconds (11.1-14.7)
[2025-07-06 15:25] LABS: Partial Thromboplastin Time 34.6 Seconds (22.3-36.8)
[2025-07-06 15:26] LABS: Alanine Aminotransferase 33 U/L (6-50); Albumin Level 3.2 g/dL (3.5-5.1); Alkaline Phosphatase 182 U/L (38-126); Anion Gap 10 mmol/L (4-12); Aspartate Amino Transferase 86 U/L (17-59); Bilirubin,Total 3.0 mg/dL (0.2-1.3); Blood Urea Nitrogen 11 mg/dL (9-20); CRP 6.9 mg/dL (<1.0); Calcium 9.0 mg/dL (8.4-10.2); Carbon Dioxide 20 mmol/L (22-30); Chloride 105 mmol/L (98-107); Estimated CRCL calculation 91 ml/min; Estimated Glomerular Filt Rate > 60; Glucose 93 mg/dL (65-110); Potassium 3.8 mmol/L (3.4-5.0); Sodium 135 mmol/L (137-145); Total Protein 8.9 g/dL (6.3-8.2)
[2025-07-06] MEDS: SODIUM CHLORIDE 0.9% IV 1,000 ML 999 ML IV CONT ×3 (16:03→17:38)
--- OUTSIDE RECORDS SUMMARY | 2025-07-06 16:08 | XMS_ITS | Clinical Summary ---
Author Organization [facility] Address [address] [place] [address] Care Team Providers Care Farmer Diversified Crops Name Role Phone None, Physician Primary Care Provider Unavailabl e Source Comments [facility],non-owned Affiliates and Associated Physician Practices is amultiple site organization consisting of ambulatory clinics and hospital sitesin [place], [place], [place] and [place]. This disclosure is being madepursuant to the Care Everywhere program and may not contain all information available regarding this patient. Last updated 18.[facility] Allergies No known active allergies Medications * Be aware that medications may not be up to date on this document. Alwaysverify current medications with the patient. oxyCODONE, immediate release, (Roxicodone) 5 MG tabletIndicati ons:Fall down stairs, initial encounter Take 1 (one) tablet by mouth every 4 hours as needed 12 tablet 06/16/2024 12:18 PM CLOTH CALENDER 4 Active acetaminophen (Tylenol) 500 MG tablet Take 2 (two) tablets by mouth 3 times daily Maximum allowable Acetaminophen amount = 4 Grams (4000 mg) / 24 hours. 60 tablet 06/16/2024 12:18 PM CLOTH CALENDER 4 Active lidocaine (Lidoderm) 5 % patch Apply 1 (one) patch to skin every 24 hours Apply patch to most painful area and remove after 12 hours. May reapply a new patch 12 hours later. 5 patch 06/16/2024 12:18 PM CLOTH CALENDER 4 Active cyclobenzaprin e (Flexeril) 10 MG tablet Take 1 (one) tablet by mouth 3 times daily as needed for Muscle Spasms 60 tablet 06/16/2024 12:18 PM CLOTH CALENDER Active Active Problems Problem Noted Date Diagnosed [...] on file Legal Sex Male 3:09 PM CLOTH CALENDER Gender Identity Not on file Sexual Orientation Not on file Last Filed Vital Signs Vital Sign Reading Time Taken Comments Blood Pressure 111/67 06/16/2024 4:35 AM CLOTH CALENDER Pulse 105 06/16/2024 6:06 AM CLOTH CALENDER Temperature 36.8 C (98.2 F) 06/16/2024 9:12 AM CLOTH CALENDER Respiratory Rate 13 06/16/2024 6:06 AM CLOTH CALENDER Oxygen Saturation 96% 06/16/2024 6:06 AM CLOTH CALENDER Inhaled Oxygen Concentration - - Weight 81.6 kg (180 lb) 07/15/2024 1:39 PM CLOTH CALENDER Height 170.2 cm (5' 7) 07/15/2024 1:39 PM CLOTH CALENDER Body Mass Index 28.19 07/15/2024 1:39 PM CLOTH CALENDER Plan of Treatment Health Maintenance Due Date [...] PANEL (CALCIUM TOTAL) STAT 06/16/2024 2:49 AM CLOTH CALENDER from Last 3 Months or Most Recently Relevant to Health Maintenance Results * (ABNORMAL) BASIC METABOLIC PANEL (CALCIUM TOTAL) (06/16/2024 2:49 AM CLOTH CALENDER) BUN 10 7 - 26 mg/dL 06/16/2024 3:28 AM [facility] Creatinine 0.71 0.71 - 1.16 mg/dL 06/16/2024 3:28 AM [facility] Sodium 144 136 - 145 mmol/L 06/16/2024 3:28 AM [facility] Potassium 4.5 3.5 - 4.5 mmol/L 06/16/2024 3:28 AM [facility] Chloride 108(H) 98 - 107 mmol/L 06/16/2024 3:28 AM [facility] CO2 16(L) 22 - 29 mmol/L 06/16/2024 3:28 AM [facility] Glucose 77 70 - 99 mg/dL 06/16/2024 3:28 AM [facility] Calcium 8.7 8.4 - 10.2 mg/dL 06/16/2024 3:28 AM [facility] Anion Gap 20(H) 6 - 16 06/16/2024 3:28 AM [facility] BUN/Creatinine Ratio 14 7 - 23 06/16/2024 3:28 AM [facility] Osmolality Calculated 296(H) 275 - 295 mOsm/kg 06/16/2024 3:28 AM [facility] eGFR by CKD-EPI >90 >=90 mL/min/1.7 3 m2 06/16/2024 3:28 AM [facility] Blood BLOOD SPECIMEN / Unknown Venipuncture / Unknown 06/16/2024 2:49 AM CLOTH CALENDER 06/16/2024 2:58 AM [facility] us Daniel Light MD LAB - CHEMISTRY ORDERABLES Final Result [facility] [address] [place] [address], [facility] [phone] from Last 3 Months or Most Recently Relevant to Health Maintenance Advance Directives * Full Code (Latest Code Status on File) Date Activated Date Inactivated Comments 06/15/2024 7:48 PM 06/16/2024 1:05 PM * Full Code Date Activated Date Inactivated Comments 06/15/2024 5:06 PM 06/15/2024 7:48 PM Care Teams Farmer Diversified Crops Relationship Specialty Start Date End Date None, Physician [address] [place] [address] PCP - General 06/15/24
--- OUTSIDE RECORDS SUMMARY | 2025-07-06 16:08 | XMS_ITS | Clinical Summary ---
Author Organization [facility] Address [address] [place] [address] Care Team Providers Care Crayon Grader Name Role Phone None, Provider MD Primary [...] on file Legal Sex Male 12:55 PM VENEER SAMPLE MAKER Gender Identity Not on file Sexual Orientation Not on file Last Filed Vital Signs Vital Sign Reading Time Taken Comments Blood Pressure 137/99 07/30/2024 3:26 PM VENEER SAMPLE MAKER Pulse 92 07/30/2024 3:26 PM VENEER SAMPLE MAKER Temperature 36.9 C (98.4 F) 07/30/2024 2:08 PM VENEER SAMPLE MAKER Respiratory Rate 18 07/30/2024 3:26 PM VENEER SAMPLE MAKER Oxygen Saturation 94% 07/30/2024 3:26 PM VENEER SAMPLE MAKER Inhaled Oxygen Concentration - - Weight 81.6 kg (180 lb) 07/30/2024 2:08 PM VENEER SAMPLE MAKER Height 172.7 cm (5' 8) 07/30/2024 2:08 PM VENEER SAMPLE MAKER Body Mass Index 27.37 07/30/2024 2:08 PM VENEER SAMPLE MAKER Plan of Treatment Health Maintenance Due Date [...] complete this topic Insurance R Care Teams Crayon Grader Relationship Specialty Start Date End Date None, Provider, PCP - General UNKNOWN PHYSICIAN SPECIALTY 06/15/24
--- OUTSIDE RECORDS SUMMARY | 2025-07-06 16:08 | XMS_ITS | Clinical Summary ---
Author Organization [facility] Address [address] [place] [address] Care Team Providers Care Disabilities Services Officer Name Role Phone Unavailable Primary Care Provider Unavailabl e Immunizations Immunization Administration Dates Next Due Covid-19, Mrna, Lnp-s, Pf, 30 Mcg/0.3 Ml Dose (P fizer) 11/08/2020,10/11/2020 Social History Tobacco Use Types Packs/Day Years Used Date Smoking Tobacco: Never Assessed Sex and Gender Information Value Date Recorded Sex Assigned at Not on file Legal Sex Male 8:24 AM GOVERNMENT AFFAIRS SPECIALIST Gender Identity Not on file Sexual Orientation [...]
[2025-07-06 16:35] LABS: Add Urine Microscopic? YES; Appearance Urine Cloudy (Clear); Glucose Urine UA Negative (Negative); Leukocyte Esterase Ur 2+ LEU/UL (Negative); Need Manual Microscopic Reviewed; Nitrate Urine Positive (Negative); Specific Grav Ur 1.020 (1.001-1.035)
[2025-07-06 17:03] LABS: Creatine Kinase 22 U/L (55-170)
[2025-07-06] MEDS: cefTRIAXone 2 GM in SODIUM CHLORIDE 0.9% IV 100 ML 200 ML IVPB (17:11)
[2025-07-06] MEDS: VANCOMYCIN 1,500 MG/NS 500 ML 1,500 MG/500 ML BAG 250 MG IVPB (17:38)
--- OUTSIDE RECORDS SUMMARY | 2025-07-06 18:18 | XMS_ITS | Clinical Summary ---
Author Organization [facility] Address [address] [place] [address] Care Team Providers Care Progress Clerk Name Role Phone None, Provider MD Primary [...] on file Legal Sex Male 12:55 PM CONTACT CENTER ANALYST Gender Identity Not on file Sexual Orientation Not on file Last Filed Vital Signs Vital Sign Reading Time Taken Comments Blood Pressure 137/99 07/30/2024 3:26 PM CONTACT CENTER ANALYST Pulse 92 07/30/2024 3:26 PM CONTACT CENTER ANALYST Temperature 36.9 C (98.4 F) 07/30/2024 2:08 PM CONTACT CENTER ANALYST Respiratory Rate 18 07/30/2024 3:26 PM CONTACT CENTER ANALYST Oxygen Saturation 94% 07/30/2024 3:26 PM CONTACT CENTER ANALYST Inhaled Oxygen Concentration - - Weight 81.6 kg (180 lb) 07/30/2024 2:08 PM CONTACT CENTER ANALYST Height 172.7 cm (5' 8) 07/30/2024 2:08 PM CONTACT CENTER ANALYST Body Mass Index 27.37 07/30/2024 2:08 PM CONTACT CENTER ANALYST Plan of Treatment Health Maintenance Due Date [...] complete this topic Insurance R Care Teams Progress Clerk Relationship Specialty Start Date End Date None, Provider, PCP - General UNKNOWN PHYSICIAN SPECIALTY 06/15/24
--- OUTSIDE RECORDS SUMMARY | 2025-07-06 18:18 | XMS_ITS | Clinical Summary ---
Author Organization [facility] Address [address] [place] [address] Care Team Providers Care Remarketing Manager Name Role Phone None, Physician Primary Care Provider Unavailabl e Source Comments [facility],non-owned Affiliates and Associated Physician Practices is amultiple site organization consisting of ambulatory clinics and hospital sitesin [place], [place], [place] and [place]. This disclosure is being madepursuant to the Care Everywhere program and may not contain all information available regarding this patient. Last updated 18.[facility] Allergies No known active allergies Medications * Be aware that medications may not be up to date on this document. Alwaysverify current medications with the patient. oxyCODONE, immediate release, (Roxicodone) 5 MG tabletIndicati ons:Fall down stairs, initial encounter Take 1 (one) tablet by mouth every 4 hours as needed 12 tablet 06/16/2024 12:18 PM FIELD RADIO OPERATOR 4 Active acetaminophen (Tylenol) 500 MG tablet Take 2 (two) tablets by mouth 3 times daily Maximum allowable Acetaminophen amount = 4 Grams (4000 mg) / 24 hours. 60 tablet 06/16/2024 12:18 PM FIELD RADIO OPERATOR 4 Active lidocaine (Lidoderm) 5 % patch Apply 1 (one) patch to skin every 24 hours Apply patch to most painful area and remove after 12 hours. May reapply a new patch 12 hours later. 5 patch 06/16/2024 12:18 PM FIELD RADIO OPERATOR 4 Active cyclobenzaprin e (Flexeril) 10 MG tablet Take 1 (one) tablet by mouth 3 times daily as needed for Muscle Spasms 60 tablet 06/16/2024 12:18 PM FIELD RADIO OPERATOR Active Active Problems Problem Noted Date Diagnosed [...] on file Legal Sex Male 3:09 PM FIELD RADIO OPERATOR Gender Identity Not on file Sexual Orientation Not on file Last Filed Vital Signs Vital Sign Reading Time Taken Comments Blood Pressure 111/67 06/16/2024 4:35 AM FIELD RADIO OPERATOR Pulse 105 06/16/2024 6:06 AM FIELD RADIO OPERATOR Temperature 36.8 C (98.2 F) 06/16/2024 9:12 AM FIELD RADIO OPERATOR Respiratory Rate 13 06/16/2024 6:06 AM FIELD RADIO OPERATOR Oxygen Saturation 96% 06/16/2024 6:06 AM FIELD RADIO OPERATOR Inhaled Oxygen Concentration - - Weight 81.6 kg (180 lb) 07/15/2024 1:39 PM FIELD RADIO OPERATOR Height 170.2 cm (5' 7) 07/15/2024 1:39 PM FIELD RADIO OPERATOR Body Mass Index 28.19 07/15/2024 1:39 PM FIELD RADIO OPERATOR Plan of Treatment Health Maintenance Due [...] PANEL (CALCIUM TOTAL) STAT 06/16/2024 2:49 AM FIELD RADIO OPERATOR from Last 3 Months or Most Recently Relevant to Health Maintenance Results * (ABNORMAL) BASIC METABOLIC PANEL (CALCIUM TOTAL) (06/16/2024 2:49 AM FIELD RADIO OPERATOR) BUN 10 7 - 26 mg/dL 06/16/2024 3:28 AM [facility] Creatinine 0.71 0.71 - 1.16 mg/dL 06/16/2024 3:28 AM [facility] Sodium 144 136 - 145 mmol/L 06/16/2024 3:28 AM [facility] Potassium 4.5 3.5 - 4.5 mmol/L 06/16/2024 3:28 AM [facility] Chloride 108(H) 98 - 107 mmol/L 06/16/2024 3:28 AM [facility] CO2 16(L) 22 - 29 mmol/L 06/16/2024 3:28 AM [facility] Glucose 77 70 - 99 mg/dL 06/16/2024 3:28 AM [facility] Calcium 8.7 8.4 - 10.2 mg/dL 06/16/2024 3:28 AM [facility] Anion Gap 20(H) 6 - 16 06/16/2024 3:28 AM [facility] BUN/Creatinine Ratio 14 7 - 23 06/16/2024 3:28 AM [facility] Osmolality Calculated 296(H) 275 - 295 mOsm/kg 06/16/2024 3:28 AM [facility] eGFR by CKD-EPI >90 >=90 mL/min/1.7 3 m2 06/16/2024 3:28 AM [facility] Blood BLOOD SPECIMEN / Unknown Venipuncture / Unknown 06/16/2024 2:49 AM FIELD RADIO OPERATOR 06/16/2024 2:58 AM [facility] us Daniel Light MD LAB - CHEMISTRY ORDERABLES Final Result [facility] [address] [place] [address], [facility] [phone] from Last 3 Months or Most Recently Relevant to Health Maintenance Advance Directives * Full Code (Latest Code Status on File) Date Activated Date Inactivated Comments 06/15/2024 7:48 PM 06/16/2024 1:05 PM * Full Code Date Activated Date Inactivated Comments 06/15/2024 5:06 PM 06/15/2024 7:48 PM Care Teams Remarketing Manager Relationship Specialty Start Date End Date None, Physician [address] [place] [address] PCP - General 06/15/24
[2025-07-06 19:20] LABS: Hepatitis B Surface Antigen Negative (Negative)
[2025-07-06 19:26] LABS: HAV RESULT Negative (Negative); Hepatitis B Core IgM Result Negative (Negative)
--- NOTE | 2025-07-06 19:45 | PM.IMHP2 ---
H&P: HPI History of Present Illness Date/Time: 07/06/25 19:45 Chief Complaint: Rash Narrative: This is a 54-year-old male patient who was recently seen on 07/02/2025 for lower back pain. He had fallen down the steps 3 weeks prior to that. The patient had a CT scan at that timeLumbar Spine CT 07/02/25 17:37 Impression: Significant inflammatory changes noted within the soft tissues anterior to L3-4. There are multiple enlarged lymph nodes in the retroperitoneum, etiology unclear. Findings may relate to a retroperitoneal process possibly neoplasm. These findings may relate to a disc related process such as discitis. Clinical correlation required. Contrast-enhanced MRI suggested if clinically there is concern for discitis and osteomyelitis. Clinically if there is concern for neoplasm CT of the abdomen and pelvis is recommended Abdomen/Pelvis CT 07/02/25 19:49 IMPRESSION: 1. Lymphadenopathy detailed above. Findings are concerning for neoplasm. PET CT is recommended. 2. Probable cirrhotic disease of the liver. 3. Incidental findings detailed above The patient had been sent home with muscle relaxers on that day. TODAY, the patient returned with a rash to his elbows, knees lower extremities, hands and feet. He did not have the rash after the CT scan but comes in to the emergency room today with this rash. He has a pustular rash that is nonpainful and is more pruritic. He denies any fever, chills, nausea, or vomiting. Today his white count is 13.3 with a previous value of 13.6 on 07/02/2025. His neutrophil percentage is 77.1. Blood percentage 17.7. His sodium levels 135 which was his previous level. Lactic acid was 3.0 on now 2.4. Total bilirubin 3.0 on a sees 86, alkaline phosphatase 182, total creatinine kinase 22, C reactive protein is 6.9, total protein 8.9, albumin 3.2. His urine was found to be cloudy with 1+ protein, urine blood 3+, positive nitrate, urine bilirubin 1+, leukocyte esterase 2+, urine rbc's 51-100, urine WBC 6-10. Hepatitis C A/B screen was found to be reactive. The patient was given IV fluids x3 L, ceftriaxone, and vancomycin. The patient is being admitted to inpatient status on the date of service of 07/06/2025. Review of Systems Constitutional: Constitutional: Reports as per HPI and Reports no additional constitutional complaints Eyes: Eyes: Reports as per HPI and Reports no additional eye complaints ENT: Reports no additional ear, nose, mouth, and throat complaints and Reports Normal hearing present Cardiovascular: Cardiovascular: Reports no additional cardiovascular complaints Respiratory: Respiratory: Reports as per HPI and Reports no additional respiratory complaints Gastrointestinal: Gastrointestinal: Reports as per HPI and Reports no additional gastrointestinal complaints Musculoskeletal: Musculoskeletal: Reports no additional musculoskeletal complaints Integumentary/Breasts: Skin/Breast: Reports system reviewed and no additional complaints, except as docu Neurologic: Reports no additional neurologic complaints and Reports Normal hearing present Psychiatric: Psychiatric: Reports no additional psychiatric complaints and Reports as per HPI Hematologic/Lymphatic: Hematologic/Lymphatic: Reports no additional hematologic/lymphatic complaints Allergic/Immunologic: Allergic/Immunologic: Reports no additional allergic/immunologic complaints [facility] Past Medical History Medical History (Updated 07/06/25 @ 21:33 by Kristi Meyer APRN) Vitamin D deficiency Muscle spasm Fracture of cervical vertebra without spinal cord injury Brain bleed Surgical History Surgical History History of tonsillectomy and adenoidectomy History of nasal surgery nasal polypectomy Family History Family History (Updated 07/06/25 @ 19:49 by Kristi Meyer APRN) Mother History of cancer of lymphatic system in adulthood Sibling Malignant neoplasm of prostate Social History Social History (Updated 07/06/25 @ 20:53 by Kristi Meyer APRN) Social History: He is single and lives with mother . He has no children . 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 He is a starr IV drug user. He continues to drink 6 drinks 3 times a week. Code status full code Smoking status: Former smoker Tobacco type: cigarettes Alcohol intake: current Drinks per week: 18 Alcohol use details: 6 drinks 3x per week Substance use: former Substance use type: IV drugs Last use: around 2017 Lack of Transportation: No Lack of Food: Never True Current Housing: I Have Housing Concerned About Future Housing: No Difficulty Paying Gas/Electric Bills: YES Difficulty Paying for Meds: YES Currently Unemployed: No Education: High School Diploma/GED Difficulty w/ Childcare or Family Care: No Living arrangements: with family Occupation/Education: occupation 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[employer] Gender identity (if verbalized by the patient): Male Meds Home Medications and Allergies Home Medications ?Medication ?Instructions ?Recorded ?Confirmed ?Type cyclobenzaprine 10 mg tablet 10 mg PO TID PRN muscle spasm #20 07/02/25 07/06/25 Rx tabs Allergies Allergy/AdvReac Type Severity Reaction Status Date / Time No Known Allergies Allergy Verified 07/06/25 20:41 Vital Signs Vital Signs - 24 hr 07/06/25 13:37 07/06/25 14:35 07/06/25 15:10 Temperature 97.8 F Pulse Rate 70 106 H 92 Respiratory Rate 16 16 16 Blood Pressure 87/60 L 78/48 L 88/62 L Pulse Oximetry 100 97 98 Oxygen Delivery Room Air 07/06/25 16:08 07/06/25 17:09 07/06/25 17:39 Temperature 97.9 F Pulse Rate 86 84 90 Respiratory Rate 20 14 18 Blood Pressure 87/58 L Pulse Oximetry 98 97 97 Oxygen Delivery 07/06/25 17:47 07/06/25 18:03 07/06/25 18:15 Temperature Pulse Rate 83 85 90 Respiratory Rate 17 18 17 Blood Pressure Pulse Oximetry 96 97 98 Oxygen Delivery 07/06/25 18:16 Temperature Pulse Rate 90 Respiratory Rate 18 Blood Pressure 107/74 Pulse Oximetry 97 Oxygen Delivery Exam Const: General: cooperative, healthy appearing, comfortable, no acute distress, well developed, awake, Physically active, average body habitus and well nourished Nutritional Appearance: average body habitus and well nourished Orientation/consciousness: oriented to person, oriented to place, oriented to time and patient oriented x3 Limitations: no limitations HENMT: Head: normal to inspection, No palpable skull fracture present, normocephalic, atraumatic and abrasion Ears: hearing grossly normal bilaterally Throat: posterior oropharynx normal Eyes: General: appearance normal, both eyes and all related structures Alignment and Position: alignment normal Periorbital: periorbital findings normal Eyelids: eyelids normal Pupils: Equal, round and reactive pupils present and Pupil accommodation reflex normal Neck: Neck: normal visual inspection, full ROM and no lymphadenopathy Chest: Chest palpation & inspection: normal inspection of the chest Resp: Effort & Inspection: normal respiratory effort Auscultation: clear to auscultation bilaterally Percussion: percussion normal Cardio: Palpation: normal PMI Rate: regular rate Rhythm: regular rhythm Heart sounds: S1 normal heart sound present and S2 normal heart sound present Peripheral pulses: Peripheral pulses 2+ throughout GI: Inspection: normal to inspection GI Palp: Yes Tenderness to palpation present (GI) (Right upper quadrant) Percussion: Yes normal to percussion Auscultation: normal bowel sounds Rectal Exam: deferred : General: Yes no CVA tenderness Back/Spine/Pelvis: Back: no CVA tenderness Cervical Spine: cervical ROM normal Skin: General skin exam: normal color Nails: normal Other: Thinning hair -pustular nodules that are pinpoint to bilateral elbows,upper arms, and forearms, palms, bilateral lower extremities, top of the feet, and soles of the feet. Neuro: General: oriented to person, oriented to place, oriented to time and patient oriented x3 Cranial nerves: Yes Equal, round and reactive pupils present and Yes Normal hearing present Cognition (Neuro): normal cognition Speech: normal speech Gait exam (Neuro): Normal gait present Motor exam (neuro): 5/5 motor strength present throughout Sensory Exam: normal sensation Extrem: General: normal to inspection Right upper extremity: normal to inspection and shoulder/upper arm Left upper extremity: normal to inspection and shoulder/upper arm Right lower extremity: normal to inspection Left lower extremity: normal to inspection Psych: Appearance: grossly normal Mental Status: mental status grossly normal Speech and movement: Normal speech and movement present Affect: normal affect Attitude: cooperative Thought process: Normal thought process present Thought content: Yes Normal thought content present Insight: Good insight present (Psych) Judgement: Good judgement present (Psych) Results Labs Labs: Short CBC 07/06/25 Range/Units 15:03 WBC 13.3 H (4.5-10.0) K/mm3 Hgb 15.5 (14.0-18.0) g/dL Hct 46.0 (42.0-52.0) % Plt Count 189 (150-375) k/mm3 BMP 07/06/25 15:03 Sodium 135 L Potassium 3.8 Chloride 105 Carbon Dioxide 20 L BUN 11 Creatinine 0.85 Glucose 93 Calcium 9.0 Cardiac Enzymes 07/06/25 Range/Units 15:03 Total Creatine Kinase 22 L (55-170) U/L Liver Function 07/06/25 Range/Units 15:03 Total Bilirubin 3.0 H (0.2-1.3) mg/dL AST 86 H (17-59) U/L ALT 33 (6-50) U/L Alkaline Phosphatase 182 H (38-126) U/L Albumin 3.2 L (3.5-5.1) g/dL Urine 07/06/25 Range/Units 16:13 Urine Color Dark amanda (Yellow) Urine Appearance Cloudy H (Clear) Urine pH 5.5 (5.0-9.0) Ur Specific [place] 1.020 (1.001-1.035) Urine Protein 1+ H (Negative) mg/dL Urine Glucose (UA) Negative (Negative) mg/dL Attestation: I personally reviewed all lab results ECG Interpretation: Test Date: 2025-07-06 14:47:56 Measurements Intervals [place] Rate: 93 P: 46 WA: 116 QRS: 69 QRSD: 91 T: 12 QT: 373 QTc: 464 Interpretive Statements SINUS RHYTHM NORMAL ECG No previous ECG available for comparison Electronically Signed On 07-06-2025 15:14:44 [employer] by Mark Messer D.O. Quality VTE Prophylaxis VTE prophylaxis: mechanical ordered Assessment and Plan Assessment and plan (1) Sepsis: Code(s): A41.9 - Sepsis, unspecified organism Status: Acute Assessment and Plan: -white count is 13.3 with neutrophils 77.1 and limb person H 17.7. -lactic acid was 3.0 now 2.4 after IV fluids. -continue to monitor lactic acid daily. -the patient was positive for a UTI. -the patient was started on Rocephin and vancomycin. -blood and urine cultures are pending. -infectious Disease has been consulted. -he has an elevated white count and a heart rate over 91 therefore patient fits sepsis criteria. Blood pressure is currently 103/63. He is afebrile. -the patient was bolused with 3 L of IV fluids in the emergency room. -continue with IV fluids -monitor daily CBCs -The patient had a CT scan at that timeLumbar Spine CT 07/02/25 17:37 Impression: Significant inflammatory changes noted within the soft tissues anterior to L3-4. There are multiple enlarged lymph nodes in the retroperitoneum, etiology unclear. Findings may relate to a retroperitoneal process possibly neoplasm. These findings may relate to a disc related process such as discitis. Clinical correlation required. Contrast-enhanced MRI suggested if clinically there is concern for discitis and osteomyelitis. Clinically if there is concern for neoplasm CT of the abdomen and pelvis is recommended Abdomen/Pelvis CT 07/02/25 19:49 IMPRESSION: 1. Lymphadenopathy detailed above. Findings are concerning for neoplasm. PET CT is recommended. 2. Probable cirrhotic disease of the liver. 3. Incidental findings detailed above -MRI with contrast has been ordered to rule out osteomyelitis of the spine. (2) UTI (urinary tract infection): Code(s): N39.0 - Urinary tract infection, site not specified Status: Acute Assessment and Plan: -blood and urine cultures are pending. -Infectious Disease has been consulted. -continue with ceftriaxone and vancomycin. -continue with IV fluid -continue to monitor lactic acid levels daily. -patient fits sepsis criteria (3) Atypical exanthem: Code(s): R21 - Rash and other nonspecific skin eruption Status: Acute Assessment and Plan: -the patient is positive for hepatitis C A/B screen. If he has active hepatitis this could cause a rash. -patient was empirically placed on steroids although I believe that this is not allergic reaction to the CT contrast. -patient has been vaccinated for measles but this is not appear to be a measle rash. -HIV is pending. The patient has been an IV drug user in the past. -RPR is been -Coxsackie a IgG antibody and Coxsackie B virus antibodies have been ordered. -patient is being screened for MRSA. -it could be a viral bacteria exanthem (4) Alcohol use disorder: Code(s): F10.90 - Alcohol use, unspecified, uncomplicated Status: Acute Assessment and Plan: -the patient was placed on CIWA protocol -p.r.n. Librium -folic acid daily -thiamine daily (5) Hepatitis C antibody positive: Code(s): R76.89 - Other specified abnormal immunological findings in serum Status: Acute Assessment and Plan: -infectious Disease has been consulted. --liver enzymes are elevated. (6) Transaminasemia: Code(s): R74.01 - Elevation of levels of liver transaminase levels Status: Acute Assessment and Plan: -the patient patient stated that he does have cirrhosis of the liver but is improving. -the patient states that he still continues to drink 6 drinks 3 times a week. -alcoholism could also elevated lactic acid level. -total bilirubin 3.0, AST 86, ALT is normal 33, alkaline phosphatase 182, -upper abdominal ultrasound has been ordered. -GI consult greatly be appreciated. (7) Cirrhosis: Code(s): K74.60 - Unspecified cirrhosis of liver Status: Acute Assessment and Plan: -his transaminase. -GI has been consulted. (8) Muscle spasm: Code(s): M62.838 - Other muscle spasm Status: Acute Assessment and Plan: -The patient had a CT scan at that timeLumbar Spine CT 07/02/25 17:37 Impression: Significant inflammatory changes noted within the soft tissues anterior to L3-4. There are multiple enlarged lymph nodes in the retroperitoneum, etiology unclear. Findings may relate to a retroperitoneal process possibly neoplasm. These findings may relate to a disc related process such as discitis. Clinical correlation required. Contrast-enhanced MRI suggested if clinically there is concern for discitis and osteomyelitis. Clinically if there is concern for neoplasm CT of the abdomen and pelvis is recommended Abdomen/Pelvis CT 07/02/25 19:49 IMPRESSION: 1. Lymphadenopathy detailed above. Findings are concerning for neoplasm. PET CT is recommended. 2. Probable cirrhotic disease of the liver. 3. Incidental findings detailed above The patient had been sent home with muscle relaxers on that day. --continue with muscle relaxers -Vader has been ordered. -the patient will need a follow-up outpatient with a PET scan. (9) Lymphadenopathy: Code(s): R59.1 - Generalized enlarged lymph nodes Status: Acute Assessment and Plan: -oncology has been consulted. -the patient will need a PET scan outpatient. -The patient had a CT scan at that timeLumbar Spine CT 07/02/25 17:37 Impression: Significant inflammatory changes noted within the soft tissues anterior to L3-4. There are multiple enlarged lymph nodes in the retroperitoneum, etiology unclear. Findings may relate to a retroperitoneal process possibly neoplasm. These findings may relate to a disc related process such as discitis. Clinical correlation required. Contrast-enhanced MRI suggested if clinically there is concern for discitis and osteomyelitis. Clinically if there is concern for neoplasm CT of the abdomen and pelvis is recommended Abdomen/Pelvis CT 07/02/25 19:49 IMPRESSION: 1. Lymphadenopathy detailed above. Findings are concerning for neoplasm. PET CT is recommended. 2. Probable cirrhotic disease of the liver. 3. Incidental findings detailed above -MRI of the lumbar spine has been ordered to rule out any infectious process. The patient has been placed on ceftriaxone and vancomycin.
--- NOTE | 2025-07-06 20:05 | WPCEDHO ---
ED Hand Off Checklist All vitals saved:YES IV Site documented:YES All med administrations documented:YES Triage Note Triage Note PT TO ED FOR EVAL OF RASH TO BODY 07/06/25 15:10 FOR PAST 2 DAYS AFTER GETTING A CT SCAN WITH CONTRAST 07/03/2025. DENIES ANY RESP COMPLAINTS. APPLIED CREAM WITH NO RELIEF. Allergies No Known Allergies Allergy (Verified 07/06/25 13:36) Family History (Last Updated 07/06/25 @ 19:49 by Kristi Meyer, CHAU) Mother History of cancer of lymphatic system in adulthood Sibling Malignant neoplasm of prostate Administered/Completed Medications Discontinued Medications Sodium Chloride (Normal Saline Iv) 1,000 mls @ 999 mls/hr IV CONT .Q1H1M STA Stop: 07/06/25 16:50 Last Infusion: 07/06/25 16:56 Dose: Infused Documented By: Admin: 07/06/25 16:03 Dose: 999 mls/hr Documented By: BONNY Ceftriaxone Sodium 2 gm/ (Sodium Chloride) 100 mls @ 200 mls/hr IVPB ONCE STA Stop: 07/06/25 17:07 Last Admin: 07/06/25 20:04 Dose: Not Given Documented By: [facility] Non-Admin Reason: Duplicate Dose Ceftriaxone Sodium 2 gm/ (Sodium Chloride) 100 mls @ 200 mls/hr IVPB ONCE STA Stop: 07/06/25 17:37 Last Infusion: 07/06/25 18:14 Dose: Infused Documented By: Admin: 07/06/25 17:11 Dose: 200 mls/hr Documented By: [facility] Vancomycin HCl (Vancomycin 1,500 Mg/Ns 500 Ml) 1,500 mg in 500 mls @ 250 mls/hr IVPB ONCE ONE Stop: 07/06/25 18:59 Last Infusion: 07/06/25 20:01 Dose: Infused Documented By: Admin: 07/06/25 17:38 Dose: 250 mls/hr Documented By: [facility] Sodium Chloride (Normal Saline Iv) 1,000 mls @ 999 mls/hr IV CONT .Q1H1M STA Stop: 07/06/25 18:20 Last Infusion: 07/06/25 20:00 Dose: Infused Documented By: Admin: 07/06/25 17:38 Dose: 999 mls/hr Documented By: [facility] Sodium Chloride (Normal Saline Iv) 1,000 mls @ 999 mls/hr IV CONT .Q1H1M STA Stop: 07/06/25 18:20 Last Infusion: 07/06/25 20:01 Dose: Infused Documented By: MARIA C Admin: 07/06/25 17:37 Dose: 999 mls/hr Documented By: MARIA C Interventions/Assessments IV / Saline Lock, Insert Start: 07/06/25 13:37 Freq: Status: Active Protocol: Document 07/06/25 15:13 BENJAMIN (Rec: 07/06/25 15:13 BENJAMIN [id number]) IV Assessment Peripheral Access Right Antecubital IV Catheter Access Initiated IV Insertion Date 07/06/25 IV Insertion Time 15:13 Catheter Gauge 18 IV Site Assessment WNL IV Care and WNL Maintenance Last Vital Signs Temperature 97.9 F 07/06/25 16:08 Pulse Rate 109 H 07/06/25 19:17 Respiratory Rate 17 07/06/25 19:17 Pulse Oximetry 97 07/06/25 19:17 Blood Pressure 110/55 L 07/06/25 19:17 Blood Pressure Mean 71 07/06/25 19:17 Blood Pressure Position Supine 07/06/25 16:08 Oxygen Delivery Room Air 07/06/25 13:37 Weight 79.5 kg 07/06/25 15:10 Last Result - Abnormals Only WBC 13.3 K/mm3 (4.5-10.0) H 07/06/25 15:03 Neut % (Auto) 77.1 % (45.5-73.1) H 07/06/25 15:03 Lymph % (Auto) 17.7 % (18.3-44.2) L 07/06/25 15:03 Abs Immat Gran (auto) 0.06 K/mm3 (0.00-0.031) H 07/06/25 15:03 Absolute Neuts (auto) 10.3 K/mm3 (1.3-6.7) H 07/06/25 15:03 PT 16.6 Seconds (11.1-14.7) H 07/06/25 15:03 Sodium 135 mmol/L (137-145) L 07/06/25 15:03 Carbon Dioxide 20 mmol/L (22-30) L 07/06/25 15:03 Lactic Acid 2.4 mmol/L (0.7-2.0) H 07/06/25 17:17 Total Bilirubin 3.0 mg/dL (0.2-1.3) H 07/06/25 15:03 AST 86 U/L (17-59) H 07/06/25 15:03 Alkaline Phosphatase 182 U/L (38-126) H 07/06/25 15:03 Total Creatine Kinase 22 U/L (55-170) L 07/06/25 15:03 C-Reactive Protein 6.9 mg/dL (<1.0) H 07/06/25 15:03 Total Protein 8.9 g/dL (6.3-8.2) H 07/06/25 15:03 Albumin 3.2 g/dL (3.5-5.1) L 07/06/25 15:03 Urine Appearance Cloudy (Clear) H 07/06/25 16:13 Urine Protein 1+ mg/dL (Negative) H 07/06/25 16:13 Ur Blood (Man) 3+ (Negative) H 07/06/25 16:13 Urine Nitrate Positive (Negative) H 07/06/25 16:13 Urine Bilirubin 1+ (Negative) H 07/06/25 16:13 Leukocyte Esterase Rfl 2+ GABRIEL/UL (Negative) H 07/06/25 16:13 Urine RBC 51-100 /hpf (0-2) H 07/06/25 16:13 Urine WBC 6-10 /hpf (0-3) H 07/06/25 16:13 Most Recent Suicide Severity Rating Suicide Severity Rating NO RISK INDICATED 07/06/25 15:10
--- NOTE | 2025-07-06 20:31 | PC.NURSE ---
RN called US. They stated patient needs to be 6 hours NPO before they can do an ultrasound. RN called Cory HUTCHINSON about patient needing to be NPO at midnight.
[2025-07-06] MEDS: SODIUM CHLORIDE 0.9% IV 1,000 ML 100 ML IV CONT (21:30)
[2025-07-06] MEDS: HYDROcodone/acetaminophen (*CRX) 5-325 MG TABLET 1 TAB PO (21:31)
[2025-07-06 22:43] LABS: Influenza A QL RT-PCR Negative (Negative); Influenza B QL RT-PCR Negative (Negative); RSV RNA, RT-PCR Negative (Negative); SARS-CoV-2 RNA PCR Negative (Negative)
[2025-07-06] MEDS: CYCLOBENZAPRINE HCL 10 MG TABLET PO (22:46)
[2025-07-06 22:52] LABS: Syphilis IgG/IgM Antibody Non-Reactive (Nonreactive)
[2025-07-06 23:14] LABS: MRSA (PCR) NOT DETECTED (NOT DETECTE)
[2025-07-07] VITALS (10 sets, daily range): BP systolic 95–117; BP diastolic 54–71; PULSE 65–95; RESP 16–20; TEMP 36.4–37.1; O2SAT 93–96
[2025-07-07] MEDS: NICOTINE (*PBKC) 14 MG PATCH 1 PATCH TRANSDERM ×2 (00:56→10:00)
[2025-07-07] MEDS: VANCOMYCIN 1,500 MG/NS 500 ML 1,500 MG/500 ML BAG 250 MG IVPB ×2 (05:07→17:07)
[2025-07-07 05:26] LABS: Hematocrit 39.5 % (42.0-52.0); Hemoglobin 13.3 g/dL (14.0-18.0); Mean Corpuscular HGB Conc 33.7 g/dl (32-36); Mean Corpuscular Hemoglobin 32.4 pg (26-34); Mean Corpuscular Volume 96.1 fl (80-100); Platelet Count Result 142 k/mm3 (150-375); Red Blood Count 4.11 M/mm3 (4.6-6.20); White Blood Count 8.7 K/mm3 (4.5-10.0)
[2025-07-07 05:47] LABS: Anion Gap 3 mmol/L (4-12); Blood Urea Nitrogen 13 mg/dL (9-20); Calcium 8.2 mg/dL (8.4-10.2); Carbon Dioxide 19 mmol/L (22-30); Chloride 112 mmol/L (98-107); Estimated CRCL calculation 114 ml/min; Estimated Glomerular Filt Rate > 60; Glucose 136 mg/dL (65-110); Magnesium 1.9 mg/dL (1.6-2.3); Potassium 4.5 mmol/L (3.4-5.0); Sodium 134 mmol/L (137-145)
--- NOTE | 2025-07-07 07:25 | P.PNIM_ITS ---
Assessment and Plan Assessment and Plan (1) Sepsis: Code(s): A41.9 - Sepsis, unspecified organism Status: Acute Assessment and Plan: * Meets criteria: Tachycardia, leukocytosis, likely underlying infection * In ED: WBC 13.3, Neutrophils 77.1, lactic acid: 3.0 * Given bolus of 3L IVFs in ER * suspected source: UTI * blood cultures drawn on 07/06 - pending * UA: 6-10 WBC, 51-100 RBC, 2+ leukocyte esterase, +nitrate * Urine culture pending * Started on Rocephin and vancomycin * ID consulted * Continue IVFs * Continue daily monitoring of CBC * Lumbar spine MRI: Suspect small epidural abscess at L4, L5 with moderately extensive anterior paraspinal inflammatory/infectious soft tissue changes which may represent phlegmon, also concern for developing osteomyelitis at L5 * Discussed with IR and ID, will need drainage of this abscess at tertiary facility, will initiate transfer to [facility] as the patient reportedly was seen at their ER upon initial evaluation after his fall approximately 1 month ago (2) Epidural abscess: Code(s): G06.2 - Extradural and subdural abscess, unspecified Status: Acute Assessment and Plan: Was initially evaluated at [facility] ER approximately 1 month ago after a fall that occurred. Was re-evaluated in [place] ER on 07/02 was discharged with muscle relaxer. Returned to a nursing ER for evaluation of newly developed rash on upper/lower extremities. Suspect initial CT lumbar/spine reading only showed lymphadenopathy, however on evaluation on 07/07, report shows concern for diskitis and osteomyelitis. * Lumbar MRI: Suspect small epidural abscess at L4-5 with moderately extensive anterior paraspinal inflammatory/infectious soft tissue changes which may represent phlegmon but no other abscess or fluid collection identified, also concern for developing osteomyelitis of L5 * ID consulted, appreciate further recommendations for antibiotic guided therapy * Spoke with Interventional Radiology who recommended transfer given limitations of services at this facility * [facility] transfer center contacted given patient initially presented to their ER, awaiting return call at this time (3) UTI (urinary tract infection): Code(s): N39.0 - Urinary tract infection, site not specified Status: Acute Assessment and Plan: * blood and urine cultures are pending * ID has been consulted * continue with ceftriaxone and vancomycin * continue with IV fluid * continue to monitor lactic acid levels daily (4) Atypical exanthem: Code(s): R21 - Rash and other nonspecific skin eruption Status: Acute Assessment and Plan: * Positive for hepatitis C A/B screen. If he has active hepatitis this could cause a rash. * Placed on steroids although I believe that this is not allergic reaction to the CT contrast. * Has been vaccinated for measles but this is not appear to be a measle rash. * Hx/o IV drug user in the past. * RPR is been * Coxsackie IgG antibody and Coxsackie B virus antibodies have been ordered. * MRSA (-) * Likely viral bacteria exanthem (5) Alcohol use disorder: Code(s): F10.90 - Alcohol use, unspecified, uncomplicated Status: Acute Assessment and Plan: * Has been placed on CIWA protocol * p.r.n. Librium * folic acid daily * thiamine daily (6) Hepatitis C antibody positive: Code(s): R76.89 - Other specified abnormal immunological findings in serum Status: Acute Assessment and Plan: * ID consulted * liver enzymes are elevated (7) Transaminasemia: Code(s): R74.01 - Elevation of levels of liver transaminase levels Status: Acute Assessment and Plan: * Hx of cirrhosis, but improving * Continues to drink 6 drinks, 3 times a week * ETOH could elevate lactic acid * Total bilirubin 3.0, AST 86, ALT is normal 33, alkaline phosphatase 182 * Abd US ordered * GI consult greatly be appreciated (8) Cirrhosis: Code(s): K74.60 - Unspecified cirrhosis of liver Status: Acute Assessment and Plan: * Has transaminase * GI consulted (9) Muscle spasm: Code(s): M62.838 - Other muscle spasm Status: Acute Assessment and Plan: Lumbar Spine CT 07/02/25 : Significant inflammatory changes noted within the soft tissues anterior to L3-4. There are multiple enlarged lymph nodes in the retroperitoneum, etiology unclear. Findings may relate to a retroperitoneal process possibly neoplasm. These findings may relate to a disc related process such as discitis. Clinical correlation required. Contrast-enhanced MRI suggested if clinically there is concern for discitis and osteomyelitis. Clinically if there is concern for neoplasm CT of the abdomen and pelvis is recommended Abdomen/Pelvis CT 07/02/25: Lymphadenopathy detailed above. Findings are concer divina for neoplasm. PET CT is recommended. Probable cirrhotic disease of the liver. Incidental findings detailed above The patient had been sent home with muscle relaxers on that day. * Continue with muscle relaxers * [place]el has been ordered. * The patient will need a follow-up outpatient with a PET scan. (10) Lymphadenopathy: Code(s): R59.1 - Generalized enlarged lymph nodes Status: Acute Assessment and Plan: * See above * Oncology has been consulted * the patient will need a PET scan outpatient * MRI of the lumbar spine has been ordered to rule out any infectious process * The patient has been placed on ceftriaxone and vancomycin. Subjective Date/time seen: 07/07/25 07:25 Interval history: This is a 54-year-old male patient who was recently seen on 07/02/2025 for lower back pain. He had fallen down the steps 3 weeks prior to that. The patient has returned with a rash to his elbows, knees lower extremities, hands and feet. 07/07/2025 Patient sitting comfortably in bed at time of examination. Lumbar MRI concerning for small epidural abscess at L4-L5 with concerning for developing osteomyelitis of L5. Discussed with Interventional Radiology who recommended transfer to tertiary facility for drainage. Infectious Disease has been consulted as well for gotten antibiotic treatment and workup of possible viral exanthem rash. Patient is otherwise hemodynamically stable at this time, remains afebrile without leukocytosis, with minimal lower back tenderness but otherwise has no complaints at this time. Review of Systems Constitutional: Constitutional: Reports as per HPI and Reports no additional constitutional complaints Eyes: Eyes: Reports as per HPI and Reports no additional eye complaints ENT: Reports system reviewed and no additional complaints, except as documented and Reports Normal hearing present Cardiovascular: Cardiovascular: Reports no additional cardiovascular complaints Respiratory: Respiratory: Reports as per HPI and Reports no additional respiratory complaints Gastrointestinal: Gastrointestinal: Reports as per HPI and Reports no additional gastrointestinal complaints Musculoskeletal: Musculoskeletal: Reports no additional musculoskeletal complaints Integumentary/Breasts: Skin/Breast: Reports system reviewed and no additional complaints, except as docu Neurologic: Reports system reviewed and no additional complaints, except as documented and Reports Normal hearing present Psychiatric: Psychiatric: Reports no additional psychiatric complaints and Reports as per HPI Hematologic/Lymphatic: Hematologic/Lymphatic: Reports no additional hematologic/lymphatic complaints Allergic/Immunologic: Allergic/Immunologic: Reports no additional allergic/immunologic complaints Exam Const: General: cooperative, healthy appearing, comfortable, no acute distress, well developed, awake, Physically active, average body habitus and well nourished Nutritional Appearance: average body habitus and well nourished Orientation/consciousness: oriented to person, oriented to place, oriented to time and patient oriented x3 Limitations: no limitations HENMT: Head: normal to inspection, No palpable skull fracture present, normocephalic, atraumatic and abrasion Ears: hearing grossly normal bilaterally Throat: posterior oropharynx normal Eyes: General: appearance normal, both eyes and all related structures Alignment and Position: alignment normal Periorbital: periorbital findings normal Eyelids: eyelids normal Pupils: Equal, round and reactive pupils present and Pupil accommodation reflex normal Neck: Neck: normal visual inspection, full ROM and no lymphadenopathy Chest: Chest palpation & inspection: normal inspection of the chest Resp: Effort & Inspection: normal respiratory effort Auscultation: clear to auscultation bilaterally Percussion: percussion normal Cardio: Palpation: normal PMI Rate: regular rate Rhythm: regular rhythm Heart sounds: S1 normal heart sound present and S2 normal heart sound present Peripheral pulses: Peripheral pulses 2+ throughout GI: Inspection: normal to inspection Auscultation: normal bowel sounds Rectal Exam: deferred : General: Yes no CVA tenderness Back/Spine/Pelvis: Back: no CVA tenderness Cervical Spine: cervical ROM normal Skin: General skin exam: normal color Nails: normal Other: Thinning hair -pustular nodules that are pinpoint to b ilateral elbows,upper arms, and forearms, palms, bilateral lower extremities, top of the feet, and soles of the feet. Neuro: General: oriented to person, oriented to place, oriented to time and patient oriented x3 Cranial nerves: Yes Equal, round and reactive pupils present and Yes Normal hearing present Cognition (Neuro): normal cognition Speech: normal speech Gait exam (Neuro): Normal gait present Motor exam (neuro): 5/5 motor strength present throughout Sensory Exam: normal sensation Extrem: General: normal to inspection Right upper extremity: normal to inspection and shoulder/upper arm Left upper extremity: normal to inspection and shoulder/upper arm Right lower extremity: normal to inspection Left lower extremity: normal to inspection Psych: Appearance: grossly normal Mental Status: mental status grossly normal Speech and movement: Normal speech and movement present Affect: normal affect Attitude: cooperative Thought process: Normal thought process present Insight: Good insight present (Psych) Judgement: Good judgement present (Psych) Objective Data Vital Signs Vital Signs: Vital Signs - 24 hr 07/06/25 13:37 07/06/25 14:35 07/06/25 15:10 Temperature 97.8 F Pulse Rate 70 106 H 92 Respiratory Rate 16 16 16 Blood Pressure 87/60 L 78/48 L 88/62 L Pulse Oximetry 100 97 98 Oxygen Delivery Room Air 07/06/25 16:08 07/06/25 17:09 07/06/25 17:39 Temperature 97.9 F Pulse Rate 86 84 90 Respiratory Rate 20 14 18 Blood Pressure 87/58 L Pulse Oximetry 98 97 97 Oxygen Delivery 07/06/25 17:47 07/06/25 18:03 07/06/25 18:15 Temperature Pulse Rate 83 85 90 Respiratory Rate 17 18 17 Blood Pressure Pulse Oximetry 96 97 98 Oxygen Delivery 07/06/25 18:16 07/06/25 18:17 07/06/25 18:30 Temperature Pulse Rate 90 93 93 Respiratory Rate 18 24 H 24 H Blood Pressure 107/74 Pulse Oximetry 97 97 95 Oxygen Delivery 07/06/25 18:31 07/06/25 18:45 07/06/25 18:47 Temperature Pulse Rate 94 96 96 Respiratory Rate 19 16 18 Blood Pressure 114/68 113/74 Pulse Oximetry 96 96 97 Oxygen Delivery 07/06/25 19:00 07/06/25 19:01 07/06/25 19:15 Temperature Pulse Rate 98 98 106 H Respiratory Rate 24 H 19 18 Blood Pressure 110/75 Pulse Oximetry 97 97 94 Oxygen Delivery 07/06/25 19:17 07/06/25 20:00 07/06/25 20:46 Temperature 97.4 F L 97.4 F L Pulse Rate 109 H 91 91 Respiratory Rate 17 20 20 Blood Pressure 110/55 L 103/63 103/63 Pulse Oximetry 97 95 95 Oxygen Delivery 07/06/25 23:32 07/06/25 23:40 07/07/25 00:00 Temperature 98.8 F Pulse Rate 77 Respiratory Rate 20 Blood Pressure 95/54 L Pulse Oximetry 94 93 Oxygen Delivery Room Air Room Air 07/07/25 00:00 07/07/25 04:00 07/07/25 04:00 Temperature 97.6 F Pulse Rate 81 84 65 Respiratory Rate 18 Blood Pressure 111/66 Pulse Oximetry 93 Oxygen Delivery 07/07/25 04:36 Temperature 97.6 F Pulse Rate 65 Respiratory Rate 18 Blood Pressure 111/66 Pulse Oximetry 93 Oxygen Delivery Intake/Output Intake/Output: Intake & Output 07/04/25 07/05/25 07/06/25 07/07/25 23:59 23:59 23:59 23:59 Intake Total 4000 0 Output Total 600 Balance 4000 -600 Meds/Results Medications: Active Medications Generic Name Dose Route Start Last Admin Trade Name Freq PRN Reason Stop Dose Admin Hydrocodone Bitart/Acetaminophen 1 tab 07/06/25 20:56 07/06/25 21:31 Hydrocodone/Acetaminophen (*Crx) 5-325 Mg Tablet PO 1 tab Q4H PRN Administration Pain Rated 4-6 Chlordiazepoxide HCl 25 mg 07/06/25 20:54 Chlordiazepoxide (*Crx) 25 Mg Capsule PO Q6H PRN Withdrawal Cyclobenzaprine HCl 10 mg 07/06/25 20:56 07/06/25 22:46 Cyclobenzaprine Hcl 10 Mg Tablet PO 10 mg TID PRN Administration Muscle Spasm Folic Acid 1 mg 07/07/25 09:00 Folic Acid 1 Mg Tablet PO DAILY REPLACED BY [facility] Vancomycin HCl 1,500 mg in 500 mls @ 250 mls/hr 07/07/25 06:00 07/07/25 05:07 Vancomycin 1,500 Mg/Ns 500 Ml IVPB 250 mls/hr Q12H MIKA Administration Sodium Chloride 1,000 mls @ 100 mls/hr 07/06/25 20:55 07/06/25 21:30 Normal Saline Iv IV CONT 100 mls/hr .Q10H MIKA Administration Ceftriaxone Sodium 1 gm/ 50 mls @ 100 mls/hr 07/07/25 17:00 Sodium Chloride IVPB Q24H REPLACED BY [facility] Methylprednisolone Sodium Succinate 60 mg 07/07/25 00:00 07/07/25 05:07 Methylprednisolone Sod Succ 125 Mg Vial IV PUSH 60 mg Q6HR MIKA Administration Nicotine 1 patch 07/06/25 23:40 07/07/25 00:56 Nicotine (*Pbkc) 14 Mg Patch TRANSDERM 1 patch DAILY MIKA Administration Thiamine HCl 100 mg 07/07/25 09:00 Thiamine Hcl 100 Mg Tablet PO QAM REPLACED BY [facility] Labs Labs: Laboratory Results - last 24 hr 07/06/25 07/06/25 07/06/25 15:03 16:13 17:17 WBC 13.3 H RBC 4.81 Hgb 15.5 Hct 46.0 MCV 95.6 MCH 32.2 MCHC 33.7 RDW 14.3 Plt Count 189 MPV 8.8 Immature Gran % (Auto) 0.5 Neut % (Auto) 77.1 H Lymph % (Auto) 17.7 L Haakon % (Auto) 3.7 Eos % (Auto) 0.6 Baso % (Auto) 0.4 Lymph # (Auto) 2.35 Haakon # (Auto) 0.5 Eos # (Auto) 0.1 Baso # (Auto) 0.1 Abs Immat Gran (auto) 0.06 H Absolute Neuts (auto) 10.3 H Absolute Nucleated RBC 0.000 Nucleated RBC % 0.0 PT 16.6 H INR 1.3 APTT 34.6 Sodium 135 L Potassium 3.8 Chloride 105 Carbon Dioxide 20 L Anion Gap 10 BUN 11 Creatinine 0.85 Estim Creat Clear Calc 91 Estimated GFR > 60 Glucose 93 Lactic Acid 3.0 H 2.4 H Calcium 9.0 Magnesium Total Bilirubin 3.0 H AST 86 H ALT 33 Alkaline Phosphatase 182 H Total Creatine Kinase 22 L C-Reactive Protein 6.9 H Total Protein 8.9 H Albumin 3.2 L Urine Color Dark amanda Urine Appearance Cloudy H Urine pH 5.5 Ur Specific [place] 1.020 Urine Protein 1+ H Urine Glucose (UA) Negative Urine Ketones Negative Ur Blood (Man) 3+ H Urine Nitrate Positive H Urine Bilirubin 1+ H Urine Urobilinogen 1.0 Add Ur Microanalysis Reviewed Leukocyte Esterase Rfl 2+ H Urine RBC 51-100 H Urine WBC 6-10 H Ur Squamous Epith Cells None seen Urine Bacteria None seen Urine Casts 3-5 Urine Mucus Present Nasal MRSA (PCR) Syphilis IgG/IgM Ab Hepatitis A IgM Ab Hep Bs Antigen Hep B Core IgM Ab Hepatitis C Ab Screen Influenza A (RT-PCR) Influenza B (RT-PCR) RSV (RT-PCR) SARS-CoV-2 RNA (RT-PCR) 07/06/25 07/06/25 07/06/25 18:24 21:49 21:59 WBC RBC Hgb Hct MCV MCH MCHC RDW Plt Count MPV Immature Gran % (Auto) Neut % (Auto) Lymph % (Auto) Haakon % (Auto) Eos % (Auto) Baso % (Auto) Lymph # (Auto) Haakon # (Auto) Eos # (Auto) Baso # (Auto) Abs Immat Gran (auto) Absolute Neuts (auto) Absolute Nucleated RBC Nucleated RBC % PT INR APTT Sodium Potassium Chloride Carbon Dioxide Anion Gap BUN Creatinine Estim Creat Clear Calc Estimated GFR Glucose Lactic Acid Calcium Magnesium Total Bilirubin AST ALT Alkaline Phosphatase Total Creatine Kinase C-Reactive Protein Total Protein Albumin Urine Color Urine Appearance Urine pH Ur Specific [place] Urine Protein Urine Glucose (UA) Urine Ketones Ur Blood (Man) Urine Nitrate Urine Bilirubin Urine Urobilinogen Add Ur Microanalysis Leukocyte Esterase Rfl Urine RBC Urine WBC Ur Squamous Epith Cells Urine Bacteria Urine Casts Urine Mucus Nasal MRSA (PCR) Not detected Syphilis IgG/IgM Ab Non-reactive Hepatitis A IgM Ab Negative Hep Bs Antigen Negative Hep B Core IgM Ab Negative Hepatitis C Ab Screen Reactive Influenza A (RT-PCR) Negative Influenza B (RT-PCR) Negative RSV (RT-PCR) Negative SARS-CoV-2 RNA (RT-PCR) Negative 07/07/25 04:59 WBC 8.7 RBC 4.11 L Hgb 13.3 L Hct 39.5 L MCV 96.1 MCH 32.4 MCHC 33.7 RDW 14.5 Plt Count 142 L MPV 8.7 Immature Gran % (Auto) Neut % (Auto) Lymph % (Auto) Haak[place] % (Auto) Eos % (Auto) Baso % (Auto) Lymph # (Auto) Haakon # (Auto) Eos # (Auto) Baso # (Auto) Abs Immat Gran (auto) Absolute Neuts (auto) Absolute Nucleated RBC Nucleated RBC % PT INR APTT Sodium 134 L Potassium 4.5 Chloride 112 H Carbon Dioxide 19 L Anion Gap 3 L BUN 13 Creatinine 0.67 L Estim Creat Clear Calc 114 Estimated GFR > 60 Glucose 136 H Lactic Acid 1.3 Calcium 8.2 L Magnesium 1.9 Total Bilirubin AST ALT Alkaline Phosphatase Total Creatine Kinase C-Reactive Protein Total Protein Albumin Urine Color Urine Appearance Urine pH Ur Specific [place] Urine Protein Urine Glucose (UA) Urine Ketones Ur Blood (Man) Urine Nitrate Urine Bilirubin Urine Urobilinogen Add Ur Microanalysis Leukocyte Esterase Rfl Urine RBC Urine WBC Ur Squamous Epith Cells Urine Bacteria Urine Casts Urine Mucus Nasal MRSA (PCR) Syphilis IgG/IgM Ab Hepatitis A IgM Ab Hep Bs Antigen Hep B Core IgM Ab Hepatitis C Ab Screen Influenza A (RT-PCR) Influenza B (RT-PCR) RSV (RT-PCR) SARS-CoV-2 RNA (RT-PCR) Quality VTE Prophylaxis VTE prophylaxis: mechanical ordered
[2025-07-07] MEDS: FOLIC ACID 1 MG TABLET PO (10:00)
[2025-07-07] MEDS: THIAMINE HCL 100 MG TABLET PO (10:00)
[2025-07-07] MEDS: SODIUM CHLORIDE 0.9% IV 1,000 ML 100 ML IV CONT (10:00)
[2025-07-07] MEDS: cefTRIAXone 2 GM in SODIUM CHLORIDE 0.9% IV 100 ML 200 ML IVPB (16:12)
--- NOTE | 2025-07-07 16:45 | WPDGICN ---
Assessment and Plan Assessment and plan (1) Cirrhosis: Code(s): K74.60 - Unspecified cirrhosis of liver Status: Acute Assessment and Plan: The patient is currently hospitalized for a multifactorial infectious process including a UTI and an L4-S5 epidural abscess, for which he is receiving antibiotic therapy under the guidance of Infectious Disease. His cirrhosis, reflected by a MELD 3.0 score of 16, Child B (7 points) , is likely secondary to the effects of chronic alcohol abuse and hepatitis C related to prior IVDU. While I explained to the patient that hepatitis C is curable, eradication therapy must be deferred until his acute infections are resolved; I spent significant time emphasizing the critical need of complete alcohol abstinence to prevent the acute decompensation of his chronic liver disease. (2) Hepatitis C antibody positive: Code(s): R76.89 - Other specified abnormal immunological findings in serum Status: Acute Plan - Once infection is under control, please refer patient to our GI clinic for a FIBROSCAN and initiate the paperwork for the treatment of hepatitis C. He will need Epclusa (Sofosbuvir combined with Velpatasvir) for 12 weeks. GI Consult Note Consult date/time: 07/07/25 16:45 Reason for consult: Cirrhosis-hepatitis C HPI: Jc Stockton is a 54-year-old male who presented to the emergency department on 07/02/2025 following a fall, with an initial lumbar spine CT revealing incidental lymphadenopathy and a cirrhotic-appearing liver. He was admitted for sepsis characterized by leukocytosis and tachycardia and started on empiric ceftriaxone and vancomycin; a subsequent lumbar MRI done today confirmed an epidural abscess spanning L4-S5 with associated regional lymphadenopathy. - Admission laboratory data included hemoglobin 15.5, platelet count 189, INR 1.3, total bilirubin 3.0, AST 86, ALT 33, alk-phos 182, and albumin 3.2, while current labs show hemoglobin 13.3, platelet count 142, sodium 134, and creatinine 0.67. Abdominal ultrasound and CT imaging identified a nodular liver and a 1.3 x 1.1 cm complex cystic lesion in the right lobe, and further workup confirmed chronic hepatitis C with a positive antibody and HCV RNA of 466,000. The patient has a significant history of daily heavy alcohol consumption over several decades and former IVDU with shared needles, though he denies current substance use. Review of Systems Cardiovascular: Cardiovascular: Reports no additional cardiovascular complaints and Denies diaphoresis Respiratory: Respiratory: Denies no additional respiratory complaints and Denies dyspnea Gastrointestinal: Gastrointestinal: Reports no additional gastrointestinal complaints, Denies abdominal pain, Denies hematochezia, Denies nausea and Denies vomiting [facility] Past Medical History Medical History Vitamin D deficiency Muscle spasm Fracture of cervical vertebra without spinal cord injury Brain bleed Surgical History Surgical History History of tonsillectomy and adenoidectomy History of nasal surgery nasal polypectomy Family History Family History Mother History of cancer of lymphatic system in adulthood Sibling Malignant neoplasm of prostate Social History Social History Social History: He is single and lives with mother . He has no children . 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 He is a starr IV drug user. He continues to drink 6 drinks 3 times a week. Code status full code Smoking packs per day: 0.5 Smoking cigarettes per day: 10.0 Smoking status: Former smoker Tobacco type: cigarettes Alcohol intake: current Drinks per week: 18 Alcohol use details: 6 drinks 3x per week Substance use: former Substance use type: IV drugs Last use: around 2016 Lack of Transportation: No Lack of Food: Never True Current Housing: I Have Housing Concerned About Future Housing: No Difficulty Paying Gas/Electric Bills: YES Difficulty Paying for Meds: YES Currently Unemployed: No Education: High School Diploma/GED Difficulty w/ Childcare or Family Care: No Living arrangements: with family Occupation/Education: occupation 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[employer] Gender identity (if verbalized by the patient): Male Spiritual care concerns: No Meds Home Medications and Allergies Home Medications ?Medication ?Instructions ?Recorded ?Confirmed ?Type cyclobenzaprine 10 mg tablet 10 mg PO TID PRN muscle spasm #20 07/02/25 07/06/25 Rx tabs Allergies Allergy/AdvReac Type Severity Reaction Status Date / Time No Known Allergies Allergy Verified 07/06/25 23:26 Vital Signs Vital Signs - 24 hr 07/06/25 17:09 07/06/25 17:39 07/06/25 17:47 Temperature Pulse Rate 84 90 83 Respiratory Rate 14 18 17 Blood Pressure Pulse Oximetry 97 97 96 Oxygen Delivery 07/06/25 18:03 07/06/25 18:15 07/06/25 18:16 Temperature Pulse Rate 85 90 90 Respiratory Rate 18 17 18 Blood Pressure 107/74 Pulse Oximetry 97 98 97 Oxygen Delivery 07/06/25 18:17 07/06/25 18:30 07/06/25 18:31 Temperature Pulse Rate 93 93 94 Respiratory Rate 24 H 24 H 19 Blood Pressure 114/68 Pulse Oximetry 97 95 96 Oxygen Delivery 07/06/25 18:45 07/06/25 18:47 07/06/25 19:00 Temperature Pulse Rate 96 96 98 Respiratory Rate 16 18 24 H Blood Pressure 113/74 110/75 Pulse Oximetry 96 97 97 Oxygen Delivery 07/06/25 19:01 07/06/25 19:15 07/06/25 19:17 Temperature Pulse Rate 98 106 H 109 H Respiratory Rate 19 18 17 Blood Pressure 110/55 L Pulse Oximetry 97 94 97 Oxygen Delivery 07/06/25 20:00 07/06/25 20:46 07/06/25 23:32 Temperature 97.4 F L 97.4 F L Pulse Rate 91 91 Respiratory Rate 20 20 Blood Pressure 103/63 103/63 Pulse Oximetry 95 95 94 Oxygen Delivery Room Air 07/06/25 23:40 07/07/25 00:00 07/07/25 00:00 Temperature 98.8 F Pulse Rate 77 81 Respiratory Rate 20 Blood Pressure 95/54 L Pulse Oximetry 93 Oxygen Delivery Room Air 07/07/25 04:00 07/07/25 04:00 07/07/25 04:36 Temperature 97.6 F 97.6 F Pulse Rate 84 65 65 Respiratory Rate 18 18 Blood Pressure 111/66 111/66 Pulse Oximetry 93 93 Oxygen Delivery 07/07/25 08:00 07/07/25 10:00 07/07/25 12:00 Temperature Pulse Rate 86 65 Respiratory Rate 18 Blood Pressure 111/66 Pulse Oximetry 93 Oxygen Delivery Room Air 07/07/25 12:00 07/07/25 14:00 Temperature 97.6 F Pulse Rate 90 89 Respiratory Rate 16 Blood Pressure 117/71 Pulse Oximetry 96 Oxygen Delivery Exam Const: General: comfortable and no acute distress Resp: Auscultation: clear to auscultation bilaterally, no crackles, no rales and no rhonchi Cardio: Rate: regular rate Rhythm: regular rhythm GI: Inspection: non-distended Auscultation: normal bowel sounds Results Labs 07/07/25 04:59 07/07/25 04:59 Labs: Short CBC 07/07/25 Range/Units 04:59 WBC 8.7 (4.5-10.0) K/mm3 Hgb 13.3 L (14.0-18.0) g/dL Hct 39.5 L (42.0-52.0) % Plt Count 142 L (150-375) k/mm3 BMP 07/07/25 04:59 Sodium 134 L Potassium 4.5 Chloride 112 H Carbon Dioxide 19 L BUN 13 Creatinine 0.67 L Glucose 136 H Calcium 8.2 L Cardiac Enzymes 07/06/25 Range/Units 15:03 Total Creatine Kinase 22 L (55-170) U/L
--- NOTE | 2025-07-07 20:18 | WPDIDCN ---
Assessment and Plan Assessment and plan (1) Epidural abscess: Code(s): G06.2 - Extradural and subdural abscess, unspecified Status: Acute (2) Acute UTI: Code(s): N39.0 - Urinary tract infection, site not specified Status: Acute Plan ASSESSMENT: 1. sepsis 2. cirrhosis 2nd EtOh ad Hep C 3. pyuria--possible UTI 4. immunocompromised 2nd cirrhosis 5. 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 Other etiologies include bartonella given cat exposure, syphilis, kaposi's sarcoma, doubt rat bite fever, ?erythema multiforme. Pt also with abdominal LAD of unclear etiology--?possible neoplasm--rash could be sweet's syndrome in that case. This is not measles 6. L4-5 epidural abscess/osteomyelitis and diskitis RECOMMENDADTIONS: -Ok for vanco and ceftriaxone for now--both high dose -neurosurgery for I&D of epidural abscess -HIV, RPR, cryoglobulins, BENJAMIN, RF, C3, C4, bartonella serology -skin biopsy -PET scan as outpatient -blood cxs -urine cx d/w pharmacy Pt was seen via video telehealth consultation with the assistance of staff. Chart, data and patient info reviewed. Patient was located at [facility] while I was in my [place] office. Pt gave consent. HPI Data of Consult Date/Time: 07/07/25 20:18 Requesting Physician: Pawan Cobb MD Primary Care Provider: Leobardo Hickman, Consult Narrative Reason for consult: sepsis Narrative: Jc Stockton is a 54 year old male with pmhx/o polysubstance abuse admitted with worsening back pain. Worked up revealed L4-5 diskitis/osteomyelitis and epidural abscess. UA also suggestive of UTI. GI on consult for cirrhosis. Pt notes he has had a bumpy rash that just started. On arms and legs. Starting to come up shoulder. Lives with mom. Has 2 cats. No dogs. Has prior hx/o IVDU--states he never shared needles. No MSM. No blood transfusions. No recent travel. No unusual hobbies. No gardening. No water sports. No known skin diseases or rheumatologic diseases. PMFSH Past Medical History Medical History Vitamin D deficiency Muscle spasm Fracture of cervical vertebra without spinal cord injury Brain bleed Surgical History Surgical History History of tonsillectomy and adenoidectomy History of nasal surgery nasal polypectomy Family History Family History Mother History of cancer of lymphatic system in adulthood Sibling Malignant neoplasm of prostate Social History Social History Social History: He is single and lives with mother . He has no children . 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 He is a starr IV drug user. He continues to drink 6 drinks 3 times a week. Code status full code Smoking packs per day: 0.5 Smoking cigarettes per day: 10.0 Smoking status: Former smoker Tobacco type: cigarettes Alcohol intake: current Drinks per week: 18 Alcohol use details: 6 drinks 3x per week Substance use: former Substance use type: IV drugs Last use: around 2016 Lack of Transportation: No Lack of Food: Never True Current Housing: I Have Housing Concerned About Future Housing: No Difficulty Paying Gas/Electric Bills: YES Difficulty Paying for Meds: YES Currently Unemployed: No Education: High School Diploma/GED Difficulty w/ Childcare or Family Care: No Living arrangements: with family Occupation/Education: occupation 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[employer] Gender identity (if verbalized by the patient): Male Spiritual care concerns: No Meds Home Medications and Allergies Home Medications ?Medication ?Instructions ?Recorded ?Confirmed ?Type cyclobenzaprine 10 mg tablet 10 mg PO TID PRN muscle spasm #20 07/02/25 07/06/25 Rx tabs Allergies Allergy/AdvReac Type Severity Reaction Status Date / Time No Known Allergies Allergy Verified 07/06/25 23:26 Vital Signs Vital Signs - 24 hr 07/06/25 20:46 07/06/25 23:32 07/06/25 23:40 Temperature 97.4 F L Pulse Rate 91 Respiratory Rate 20 Blood Pressure 103/63 Pulse Oximetry 95 94 Oxygen Delivery Room Air Room Air 07/07/25 00:00 07/07/25 00:00 07/07/25 04:00 Temperature 98.8 F Pulse Rate 77 81 84 Respiratory Rate 20 Blood Pressure 95/54 L Pulse Oximetry 93 Oxygen Delivery 07/07/25 04:00 07/07/25 04:36 07/07/25 08:00 Temperature 97.6 F 97.6 F Pulse Rate 65 65 86 Respiratory Rate 18 18 Blood Pressure 111/66 111/66 Pulse Oximetry 93 93 Oxygen Delivery 07/07/25 10:00 07/07/25 12:00 07/07/25 12:00 Temperature Pulse Rate 65 90 Respiratory Rate 18 Blood Pressure 111/66 Pulse Oximetry 93 Oxygen Delivery Room Air 07/07/25 14:00 07/07/25 16:00 07/07/25 16:00 Temperature 97.6 F Pulse Rate 89 95 Respiratory Rate 16 Blood Pressure 117/71 117/71 Pulse Oximetry 96 Oxygen Delivery 07/07/25 20:00 07/07/25 20:06 Temperature 97.9 F 97.9 F Pulse Rate 92 92 Respiratory Rate 18 18 Blood Pressure 108/64 108/64 Pulse Oximetry 96 96 Oxygen Delivery Exam Narrative: on room air, Non-toxic acral rash with some umbilicated red-purple lesions, some scabbing over, Results Labs 07/07/25 04:59 07/07/25 04:59 Labs: Short CBC 07/07/25 Range/Units 04:59 WBC 8.7 (4.5-10.0) K/mm3 Hgb 13.3 L (14.0-18.0) g/dL Hct 39.5 L (42.0-52.0) % Plt Count 142 L (150-375) k/mm3 [facility] 07/07/25 04:59 Sodium 134 L Potassium 4.5 Chloride 112 H Carbon Dioxide 19 L BUN 13 Creatinine 0.67 L Glucose 136 H Calcium 8.2 L
[2025-07-07 22:12] LABS: HIV 1/2 Ab P24 Ag Result Negative (Negative)
[2025-07-08] VITALS: BP 110/66; PULSE 74; PULSE 83; RESP 18; TEMP 36.4; O2SAT 96
[2025-07-08] MEDS: SODIUM CHLORIDE 0.9% IV 1,000 ML 100 ML IV CONT
--- NOTE | 2025-07-08 07:02 | P.TS_ITS ---
Transfer Discharge Sum: Prov Provider Date of admission: 07/06/25 18:05 Primary care physician: Leobardo Hickman, MD Admitting clinician: Pawan Cobb MD Consults: 07/06/25 Consult to Physician Routine Comment: LVM @0830 07/07 [facility]: Richie Anderson scallop raker/MD group to consult: gi consult Reason for consultation: cirrhosis of the liver Has provider been notified: Yes Consult to Physician Routine Comment: Spoke to exchange @0835 07/07 [facility] [place] Provider: Wilma Wilson scallop raker/MD group to consult: Infectious Disease Reason for consultation: Reactive hepatitis-C Has provider been notified: Yes Consult to Physician Routine Comment: Spoke to office @0930 07/07 [facility] Provider: Phil Cole scallop raker/MD group to consult: oncology Reason for consultation: lympadenopathy Has provider been notified: Yes 07/07/25 08:37 Consult Infectious Disease Pharmacist Routine Comment: Initiate coordination of ID Physician consult. 07/07/25 11:31 Consult to Physician Routine Comment: Spoke to DR @1220 07/07 [facility] Provider: Faizan Zafar scallop raker/MD group to consult: Neurosurgery Charisma requesting [facility] call him directly, Florentino has been notified Reason for consultation: epidural abscess/possible phlegmon, concern for osteomyelitis L5 Has provider been notified: Yes 07/07/25 14:19 Consult to Physician Routine Comment: Consulting Provider: scallop raker/MD group to consult: Interventional Radiology Reason for consultation: Bx of discitis Has provider been notified: No Receiving physician/facility: [facility] ER DS: Admitting Diagnosis Discharge Date 07/08/25 Admitting Diagnosis Sepsis DS: Discharge Diagnosis Discharge Diagnosis (1) Sepsis: Code(s): A41.9 - Sepsis, unspecified organism Status: Acute Assessment and Plan: * Meets criteria: Tachycardia, leukocytosis, likely underlying infection * In ED: WBC 13.3, Neutrophils 77.1, lactic acid: 3.0 * Given bolus of 3L IVFs in ER * suspected source: UTI * blood cultures drawn on 07/06 - pending * UA: 6-10 WBC, 51-100 RBC, 2+ leukocyte esterase, +nitrate * Urine culture pending * Started on Rocephin and vancomycin * ID consulted * Continue IVFs * Continue daily monitoring of CBC * Lumbar spine MRI: Suspect small epidural abscess at L4, L5 with moderately extensive anterior paraspinal inflammatory/infectious soft tissue changes which may represent phlegmon, also concern for developing osteomyelitis at L5 * Discussed with IR and ID, will need drainage of this abscess at tertiary f acility, will initiate transfer to [facility] as the patient reportedly was seen at their ER upon initial evaluation after his fall approximately 1 month ago (2) Epidural abscess: Code(s): G06.2 - Extradural and subdural abscess, unspecified Status: Acute Assessment and Plan: Was initially evaluated at [facility] ER approximately 1 month ago after a fall that occurred. Was re-evaluated in [place] ER on 07/02 was discharged with muscle relaxer. Returned to a nursing ER for evaluation of newly developed rash on upper/lower extremities. Suspect initial CT lumbar/spine reading only showed lymphadenopathy, however on evaluation on 07/07, report shows concern for diskitis and osteomyelitis. * Lumbar MRI: Suspect small epidural abscess at L4-5 with moderately extensive anterior paraspinal inflammatory/infectious soft tissue changes which may represent phlegmon but no other abscess or fluid collection identified, also concern for developing osteomyelitis of L5 * ID consulted, appreciate further recommendations for antibiotic guided therapy * Spoke with Interventional Radiology who recommended transfer given limitations of services at this facility * [facility] transfer center contacted given patient initially presented to their ER, awaiting return call at this time (3) UTI (urinary tract infection): Code(s): N39.0 - Urinary tract infection, site not specified Status: Acute Assessment and Plan: * blood and urine cultures are pending * ID has been consulted * continue with ceftriaxone and vancomycin * continue with IV fluid * continue to monitor lactic acid levels daily (4) Atypical exanthem: Code(s): R21 - Rash and other nonspecific skin eruption Status: Acute Assessment and Plan: * Positive for hepatitis C A/B screen. If he has active hepatitis this could cause a rash. * Placed on steroids although I believe that this is not allergic reaction to the CT contrast. * Has been vaccinated for measles but this is not appear to be a measle rash. * Hx/o IV drug user in the past. * RPR is been * Coxsackie IgG antibody and Coxsackie B virus antibodies have been ordered. * MRSA (-) * Likely viral bacteria exanthem (5) Alcohol use disorder: Code(s): F10.90 - Alcohol use, unspecified, uncomplicated Status: Acute Assessment and Plan: * Has been placed on CIWA protocol * p.r.n. Librium * folic acid daily * thiamine daily (6) Hepatitis C antibody positive: Code(s): R76.89 - Other specified abnormal immunological findings in serum Status: Acute Assessment and Plan: * ID consulted * liver enzymes are elevated (7) Transaminasemia: Code(s): R74.01 - Elevation of levels of liver transaminase levels Status: Acute Assessment and Plan: * Hx of cirrhosis, but improving * Continues to drink 6 drinks, 3 times a week * ETOH could elevate lactic acid * Total bilirubin 3.0, AST 86, ALT is normal 33, alkaline phosphatase 182 * Abd US ordered * GI consult greatly be appreciated (8) Cirrhosis: Code(s): K74.60 - Unspecified cirrhosis of liver Status: Acute Assessment and Plan: * Has transaminase * GI consulted (9) Muscle spasm: Code(s): M62.838 - Other muscle spasm Status: Acute Assessment and Plan: Lumbar Spine CT 07/02/25 : Significant inflammatory changes noted within the soft tissues anterior to L3-4. There are multiple enlarged lymph nodes in the retroperitoneum, etiology unclear. Findings may relate to a retroperitoneal process possibly neoplasm. These findings may relate to a disc related process such as discitis. Clinical correlation required. Contrast-enhanced MRI suggested if clinically there is concern for discitis and osteomyelitis. Clinically if there is concern for neoplasm CT of the abdomen and pelvis is recommended Abdomen/Pelvis CT 07/02/25: Lymphadenopathy detailed above. Findings are concerning for neoplasm. PET CT is recommended. Probable cirrhotic disease of the liver. Incidental findings detailed above The patient had been sent home with muscle relaxers on that day. * Continue with muscle relaxers * Marshall has been ordered. * The patient will need a follow-up outpatient with a PET scan. (10) Lymphadenopathy: Code(s): R59.1 - Generalized enlarged lymph nodes Status: Acute Assessment and Plan: * See above * Oncology has been consulted * the patient will need a PET scan outpatient * MRI of the lumbar spine has been ordered to rule out any infectious process * The patient has been placed on ceftriaxone and vancomycin. Transfer Discharge Sum: Med Medications Active and Home Medications: Home Medications cyclobenzaprine 10 mg tablet 10 mg PO TID PRN muscle spasm #20 tabs 07/02/25 [Rx Confirmed 07/06/25] Transfer Discharge Sum: Hosp Hospital Course Hospital course: Jc Stockton is a 54 year old male a 54-year-old male with a history of alcohol use disorder, chronic hepatitis C, and cirrhosis who initially presented on 07/02/2025 after a fall with lower back pain and was discharged with muscle relaxants following CT imaging that showed retroperitoneal lymphadenopathy and a cirrhotic-appearing liver. He re-presented on 07/06/2025 with a new, diffuse pustular and nodular acral rash involving the elbows, hands, feet, and lower extremities, along with hypotension, tachycardia, leukocytosis, and elevated lactate, meeting criteria for sepsis. Initial workup suggested a urinary tract infection, and he was resuscitated with 3 liters of IV fluids and started on empiric broad-spectrum antibiotics with ceftriaxone and vancomycin. Blood and urine cultures were obtained and Infectious Disease was consulted. Further evaluation with lumbar MRI revealed an L4?L5 epidural abscess with associated discitis/osteomyelitis and paraspinal inflammatory phlegmon, felt to be the likely primary source of sepsis. Interventional Radiology and Infectious Disease recommended higher-level care for definitive neurosurgical or interventional management, as these services were not available at this facility. During hospitalization, his hemodynamics stabilized, leukocytosis and lactic acidosis resolved, and he remained afebrile without focal neurologic deficits. His hospi conrad course was further complicated by known cirrhosis (MELD 3.0 = 16, Child-Coelho B) with transaminitis and hyperbilirubinemia, chronic hepatitis C infection with detectable viral load, and an atypical acral rash felt to be possibly related to hepatitis C?associated processes versus infectious or inflammatory etiologies; additional serologic workup and skin biopsy were recommended. GI, Infectious D isease, and Oncology were consulted for cirrhosis, hepatitis C management, rash evaluation, and lymphadenopathy, with plans for outpatient PET imaging once acute issues resolve. Given the diagnosis of epidural abscess with suspected vertebral osteomyelitis requiring drainage and specialized care, the patient is being transferred to a tertiary care center for neurosurgical evaluation and definitive management, while continuing IV vancomycin and ceftriaxone. Patient Condition: Stable Time Spent with Patient Time attestation: Total time spent providing and/or coordinating transfer services: 41 Exam Const: General: cooperative, healthy appearing, comfortable, no acute distress, well developed, awake, Physically active, average body habitus and well nourished Nutritional Appearance: average body habitus and well nourished Orientation/consciousness: oriented to person, oriented to place, oriented to time and patient oriented x3 Limitations: no limitations HENMT: Head: normal to inspection, No palpable skull fracture present, normocephalic, atraumatic and abrasion Ears: hearing grossly normal bilaterally Throat: posterior oropharynx normal Eyes: General: appearance normal, both eyes and all related structures Alignment and Position: alignment normal Periorbital: periorbital findings no rmal Eyelids: eyelids normal Pupils: Equal, round and reactive pupils present and Pupil accommodation reflex normal Neck: Neck: normal visual inspection, full ROM and no lymphadenopathy Chest: Chest palpation & inspection: normal inspection of the chest Resp: Effort & Inspection: normal respiratory effort Auscultation: clear to auscultation bilaterally Percussion: percussion normal Cardio: Palpation: normal PMI Rate: regular rate Rhythm: regular rhythm Heart sounds: S1 normal heart sound present and S2 normal heart sound present Peripheral pulses: Peripheral pulses 2+ throughout GI: Inspection: normal to inspection Auscultation: normal bowel sounds Rectal Exam: deferred : General: Yes no CVA tenderness Back/Spine/Pelvis: Back: no CVA tenderness Cervical Spine: cervical ROM normal Skin: General skin exam: normal color Nails: normal Other: Thinning hair -pustular nodules that are pinpoint to b ilateral elbows,upper arms, and forearms, palms, bilateral lower extremities, top of the feet, and soles of the feet. Neuro: General: oriented to person, oriented to place, oriented to time and patient oriented x3 Cranial nerves: Yes Equal, round and reactive pupils present and Yes Normal hearing present Cognition (Neuro): normal cognition Speech: normal speech Gait exam (Neuro): Normal gait present Motor exam (neuro): 5/5 motor strength present throughout Sensory Exam: normal sensation Extrem: General: normal to inspection Right upper extremity: normal to inspection and shoulder/upper arm Left upper extremity: normal to inspection and shoulder/upper arm Right lower extremity: normal to inspection Left lower extremity: normal to inspection Psych: Appearance: grossly normal Mental Status: mental status grossly no rmal Speech and movement: Normal speech and movement present Affect: normal affect Attitude: cooperative Thought process: Normal thought process present Insight: Good insight present (Psych) Judgement: Good judgement present (Psych) DS: Data Data Completed and Pending Labs on day of discharge: Labs from last 24 hours 07/07/25 07/07/25 07/06/25 17:40 04:59 21:45 Rheumatoid Factor > 120.0 Complement C3 101 Complement C4 11.6 L Hepatitis C RNA Quant HCV RNA (PCR) log10 HCV RNA PCR Test Info Hepatitis C Genotype Pending HIV 1&2 Ab/P24 Ag 4thGn Negative 07/06/25 18:24 Rheumatoid Factor Complement C3 Complement C4 Hepatitis C RNA Quant [id number] HCV RNA (PCR) log10 5.668 HCV RNA PCR Test Info Comment Hepatitis C Genotype HIV 1&2 Ab/P24 Ag 4thGn Preliminary micro results at discharge 07/06/25 16:13 - Preliminary Urine Clean Catch 07/06/25 15:03 Blood Culture - Preliminary Blood 07/06/25 15:10 Blood Culture - Preliminary Blood
[2025-07-08 07:09] LABS: Measles Antibodies, IgG >300.0 AU/mL (Immune >16.4)
== END 2025-07-08 01:00 | disposition short-term general hospital (02) | DRG 720 ==
LOC: ANHED 16:17 → ANH2MED 19:34
PROVIDERS: Internal Medicine Gastroenterology; Internal Medicine Infectious Disease; Nurse Practitioner; Registered Nurse; Admitting Provider General Practice; Emergency Provider Student in an Organized Health Care Education/Training Program; PCP Internal Medicine; Visit Provider Physician Assistant
DX: A41.9 Sepsis, unspecified organism (principal); N39.0 Urinary tract infection, site not specified; M62.838 Other muscle spasm; K70.30 Alcoholic cirrhosis of liver without ascites; R21 Rash and other nonspecific skin eruption; F10.90 Alcohol use, unspecified, uncomplicated; R76.89 Other specified abnormal immunological findings in serum; R74.01 Elevation of levels of liver transaminase levels; R59.1 Generalized enlarged lymph nodes; Z87.891 Personal history of nicotine dependence
CPT/HCPCS: 36415; 72158; 76705; 80048; 80053; 80074; 81001; 82550; 83605; 83735; 85025; 85027; 85610; 85730; 86140; 86160; 86430; 86593; 86658; 86703; 86765; 87040; 87086; 87186; 87522; 87637; 87641; 87902; 93005; 96361; 96365; 96367; 99285; A9270; A9577; G0432; J0696; J2919; J3373; J7030